=== PATIENT | male | born 1950 | race Caucasian/White ===

== ENCOUNTER 2019-05-15 15:36 | Emergency (ER) | payer MEDICARE ==
[2019-05-15 15:55] VITALS: PULSE 66
--- NOTE | 2019-05-15 16:05 | ERPHSYRPT ---
- History of Present Illness Time Seen by Provider: 05/15/19 16:02 Source: patient Exam Limitations: no limitations Patient Subjective Stated Complaint: pt reports yesterday morning when he woke he had right wrist pain. pt reports he thought he slept on his arm wrong. pt reports pain has increased. pt denies injury or accident. Triage Nursing Assessment: pt is aox3, pupils perrl, afebrile, resps easy and non labored, radial pulses strong and equal, cap refill < 3 seconds, pt sensation is intact, ROM limited to right wrist due to pain with movement, slight swelling noted to the right wrist,hand. skin is intact. Physician History: pt reports yesterday morning when he woke he had right wrist pain. pt reports he thought he slept on his arm wrong. pt reports pain has increased. pt denies injury or accident. ROM limited to right wrist due to pain with movement, slight swelling noted to the right wrist,hand. Occurred: yesterday Severity of Pain-Max: moderate Severity of Pain-Current: moderate Extremities Pain Location: elbow: right, forearm: right, wrist: right Modifying Factors: Improves With: nothing Associated Symptoms: none Allergies/Adverse Reactions: meperidine [From Demerol] Adverse Reaction (Verified 05/15/19 15:55) Home Medications: Lisinopril/Hydrochlorothiazide [Lisinopril-Hctz 10-12.5 mg Tab] 1 ea DAILY 05/20 [History] Hx Tetanus, Diphtheria Vaccination/Date Given: (unk) Hx Influenza Vaccination/Date Given: No Hx Pneumococcal Vaccination/Date Given: No Immunizations Up to Date: Yes - Review of Systems Constitutional: No Fever, No Chills Eyes: No Symptoms Ears, Nose, & Throat: No Symptoms Respiratory: No Cough, No Dyspnea Cardiac: No Chest Pain, No Edema, No Syncope Abdominal/Gastrointestinal: No Abdominal Pain, No Nausea, No Vomiting, No Diarrhea Genitourinary Symptoms: No Dysuria Musculoskeletal: Joint Redness, Joint Pain (right wrist, forearm and elbow), Joint Swelling, No Back Pain, No Neck Pain, No Deformity, No Fall Skin: No Rash Neurological: No Dizziness, No Focal Weakness, No Sensory Changes Psychological: No Symptoms Endocrine: No Symptoms All Other Systems: Reviewed and Negative - Past Medical History Pertinent Past Medical History: Yes Cardiac History: Hypertension - Past Surgical History Past Surgical History: Yes Cardiac: CABG Gastrointestinal: Appendectomy Musculoskeletal: Orthopedic Surgery Other Surgical History: knee surg bilat, shoulder surg, kidney stone removed, ear surg, sinus surg,. CABG 01/15/2019 - Social History Smoking Status: Current every day smoker Exposure to second hand smoke: Yes Drug Use: none Patient Lives Alone: No - Nursing Vital Signs Nursing Vital Signs: Initial Vital Signs Temperature 97.8 F 05/15/19 15:45 Pulse Rate 66 05/15/19 15:45 Respiratory Rate 20 05/15/19 15:45 Blood Pressure 162/81 05/15/19 15:45 O2 Sat by Pulse Oximetry 98 05/15/19 15:45 Pain Scale Pain Intensity 4 - Physical Exam General Appearance: alert Eyes, Ears, Nose, Throat Exam: moist mucous membranes Neck Exam: non-tender, supple Cardiovascular/Respiratory Exam: chest non-tender, normal breath sounds, regular rate/rhythm, no respiratory distress Abdominal Exam: non-tender, No guarding Back Exam: normal inspection, No vertebral tenderness Elbow/Forearm Exam: limited ROM, soft tissue tenderness, No deformity Wrist Exam: limited ROM, pain, soft tissue tenderness Hand Exam: normal inspection Neuro/Tendon Exam: normal sensation, normal motor functions Mental Status Exam: alert, oriented x 3, cooperative Skin Exam: normal color, warm, dry SpO2: 98 - Course Nursing assessment & vital signs reviewed: Yes - Radiology Exams Elbow X-ray Interpretation: Reviewed by me (no acute fracture), Negative, No Fracture Forearm X-ray Interpretation: Reviewed by me (no acute fracture), Negative, No Fracture Wrist X-ray Interpretation: Reviewed by me, Negative, No Fracture Ordered Tests: Medication Summary Discontinued Medications Generic Name Dose Route Start Last Admin Trade Name Freq PRN Reason Stop Dose Admin Ketorolac Tromethamine 60 mg 05/15/19 16:37 05/15/19 16:46 Toradol 30 Mg Injection IM 05/15/19 16:38 60 mg STAT ONE Administration Ketorolac Tromethamine Confirm 05/15/19 16:42 Toradol 30 Mg Injection Administered 05/15/19 16:43 Dose 60 mg .ROUTE .STK-MED ONE Lab/Rad Data: Laboratory Result Diagrams 05/15/19 16:15 05/15/19 16:15 Laboratory Results 05/15/19 05/15/19 Range/Units 16:15 16:15 WBC 8.1 (4.0-10.5) K/mm3 RBC 5.28 (4.1-5.6) M/mm3 Hgb 15.1 (12.5-18.0) gm/dl Hct 44.4 (42-50) % MCV 84.1 (78-100) fl MCH 28.6 (26-32) pg MCHC 34.0 (32-36) g/dl RDW 13.6 (11.5-14.0) % Plt Count 219 (150-450) K/mm3 MPV 11.4 H (6-9.5) fl Gran % 55.6 (36.0-66.0) % Eos # (Auto) 0.15 (0-0.5) Absolute Lymphs (auto) 2.68 (1.0-4.6) Absolute Monos (auto) 0.67 (0.0-1.3) Lymphocytes % 33.3 (24.0-44.0) % Monocytes % 8.3 (0.0-12.0) % Eosinophils % 1.9 (0.00-5.0) % Basophils % 0.9 (0.0-0.4) % Absolute Granulocytes 4.48 (1.4-6.9) Basophils # 0.07 (0-0.4) Sodium 142 (137-145) mmol/L Potassium 3.8 (3.5-5.1) mmol/L Chloride 105 (98-107) mmol/L Carbon Dioxide 27 (22-30) mmol/L Anion Gap 14.7 (5-15) MEQ/L BUN 20 (9-20) mg/dL Creatinine 1.11 (0.66-1.25) mg/dL Estimated GFR > 60.0 ML/MIN Glucose 111 H (74-106) mg/dL Uric Acid 7.4 H (3.5-7.2) mg/dL Calcium 9.8 (8.4-10.2) mg/dL Total Bilirubin 0.80 (0.2-1.3) mg/dL AST 35 (17-59) U/L ALT 36 (0-50) U/L Alkaline Phosphatase 72 (38-126) U/L Serum Total Protein 8.0 (6.3-8.2) g/dL Albumin 4.8 (3.5-5.0) g/dL - Progress Progress: improved, pain not gone completely Counseled pt/family regarding: lab results, diagnosis, need for follow-up, rad results - Departure Departure Disposition: Home Clinical Impression: Gouty arthritis of right hand Condition: Stable Critical Care Time: No Referrals: YOLANDA RIOS [Primary Care Provider] - Instructions: Gout (DC), Uric Acid Blood Test, Low Purine Diet Additional Instructions: Discharge/Care Plan ALINE CABALLERO was seen on 05/15/19 in the Emergency Room. The patient was counseled regarding Diagnosis,Lab results, Imaging studies, need for follow up and when to return to the Emergency Room. Prescriptions given: Discharge Note I have spoken with the patient and/or caregivers. I have explained the patient' s condition, diagnosis and treatment plan based on the information available to me at this time. I have answered the patient's and/or caregiver's questions and addressed any concerns. The patient and/or caregivers have as good understanding of the patient's diagnosis, condition and treatment plan as can be expected at this point. The vital signs have been stable. The patient's condition is stable and appropriate for discharge from the emergency department. The patient will pursue further outpatient evaluation with the primary care physician or other designated or consulting physician as outlined in the discharge instructions. The patient and/or caregivers are agreeable to this plan of care and follow-up instructions have been explained in detail. The patient and/or caregivers have received these instruction. The patient/and or caregivers are aware that any significant change in condition or worsening of symptoms should prompt an immediate return to this or the closest emergency department or call 911. ALINE CABALLERO was seen on 05/15/19 n the Emergency Room. At that time you were treated for an emergent condition, during your visit Laboratory, Radiology and/or other procedures may have been ordered. It is very important that you follow-up with your Primary Care Physician YOLANDA RIOS within the next 24- 48 hours to review your Emergency Room visit and the final results of testing that was ordered. Some test results such as Urine Cultures, Blood Cultures, and other cultures if ordered will not be finalized for 24-48 hours. If you do not have a Primary Care Provider please call the medical records department at [phone] to obtain a copy of your results or you may sign into our patient portal to obtain these results by visiting us @ [email or web address] and completing the following steps: 1. Click on the Patient Portal link 2. Click the Patient Self Enrollment Link to complete the enrollment form and entering your 3. Once the enrollment form is completed you will receive an email with a temporary ID and password at the email address you provided. 4. Next choose a user name and password. Your user name must be at least 4 characters long and your password must be at least 4 characters long. 5. Choose a security question from the list and provide your answer to the question. If you already have signed into the Health Portal you may access your Health Care Information 31/03 by the following steps: 1. Login to our website @ [email or web address] 2. Enter your original user name and password. FAQS The [facility] Health Portal is an online tool that contains your Lab Results, Radiology Reports, Visit History, Discharge Instructions and Health Summary Lab and Radiology Results will not be available for 72 hours on the portal. The Portal is a secure site, passwords are encryted and URLs are re-written so they cannot be copied and pasted. You and authorized family members are the only ones who can access your Portal. Also there is a timeout feature that protects your information if you leave the Portal page open. If you have technical difficulty please use the Contact Us link on the page this will allow you to submit any questions you have regarding the Portal or you may contact the Medical Record Department at [phone] ext [phone]. Prescriptions: Indomethacin 25 mg [Indocin 25 MG] 25 mg PO TID #20 capsule
[2019-05-15 16:27] LABS: BASOPHIL % 0.9 % (0.0-0.4); Basophil (Absolute #) 0.07 (0-0.4); Eosinophil % 1.9 % (0.00-5.0); Eosinophil (Absolute #) 0.15 (0-0.5); Granulocyte Absolute (ANC) 4.48 (1.4-6.9); Granulocytes % 55.6 % (36.0-66.0); Hematocrit 44.4 % (42-50); Hemoglobin 15.1 gm/dl (12.5-18.0); Lymphocyte (Absolute #) 2.68 (1.0-4.6); Lymphocytes % 33.3 % (24.0-44.0); Mean Cell Volume 84.1 fl (78-100); Mean Corpuscular Hemoglobin 28.6 pg (26-32); Mean Platelet Volume 11.4 fl (6-9.5); Monocyte (Absolute #) 0.67 (0.0-1.3); Monocytes % 8.3 % (0.0-12.0); Platelet Count 219 K/mm3 (150-450); Red Blood Count 5.28 M/mm3 (4.1-5.6); Red Cell Distribution Width 13.6 % (11.5-14.0); White Blood Count 8.1 K/mm3 (4.0-10.5)
[2019-05-15 16:34] LABS: ALBUMIN 4.8 g/dL (3.5-5.0); ALKALINE PHOSPHATASE 72 U/L (38-126); ANION GAP 14.7 MEQ/L (5-15); BLOOD UREA NITROGEN 20 mg/dL (9-20); CHLORIDE 105 mmol/L (98-107); Calcium 9.8 mg/dL (8.4-10.2); Carbon Dioxide 27 mmol/L (22-30); Creatinine 1 1.11 mg/dL (0.66-1.25); Glucose 111 mg/dL (74-106); Potassium 3.8 mmol/L (3.5-5.1); SGOT/AST 35 U/L (17-59); SGPT/ALT 36 U/L (0-50); SODIUM 142 mmol/L (137-145); Uric Acid 7.4 mg/dL (3.5-7.2)
[2019-05-15] MEDS ORDERED: TORAdol 30 mg Injection IM ONE (16:37)
[2019-05-15] MEDS ORDERED: TORAdol 30 mg Injection ONE (16:42)
[2019-05-15 17:09] VITALS: BP 157/76
--- NOTE | 2019-05-16 07:31 | XRAY ---
Indication: Pain. No known injury. Comparison: None 3 views of the right wrist demonstrates mild 1st metacarpal multangular degenerative changes with tiny heterotopic ossification. Mild radiocarpal joint space narrowing. No other bony, articular, or soft tissue abnormalities.
--- NOTE | 2019-05-16 07:33 | XRAY ---
Indication: Pain. No known injury. Comparison: None 3 views of the right elbow demonstrates tiny spurring of the lateral epicondyle and olecranon process. No other bony, articular, or soft tissue abnormalities.
--- NOTE | 2019-05-16 07:36 | XRAY ---
Indication: Pain. No known injury. Comparison: None 2 views of the right forearm obtained. No bony, articular, or soft tissue abnormalities. Wrist and elbow reported separately.
[2019-05-18 12:17] VITALS: O2SAT 98
== END 2019-05-15 17:08 | disposition home or self-care (01) ==
LOC: ED 15:36
DX: M10.9 Gout, unspecified (principal)
CPT/HCPCS: 36415; 73080; 73090; 73110; 80053; 84550; 85025; 96372; 99284; J1885

== ENCOUNTER 2020-06-12 08:20 | Day surgery (SDC) | payer MEDICARE ==
[~2020-06-12 08:20] MED LIST: DIPRIVAN 200 MG/20 ML IV ONE; Quelicin Fliptop 200 MG/10 ML ONE; SUBLIMAZE 250 MCG/5 ML ONE; Versed 2 MG/2 ML Injection ONE
[2020-06-12] MEDS ORDERED: BRIDION 200MG/2ML IV ONE (08:51)
--- NOTE | 2020-06-12 08:56 | HP ---
DATE OF SURGERY: 06/12/2020 HISTORY OF PRESENT ILLNESS: The patient is a 69 year old with a bulge and a lot of pain in the xiphoid area. It is felt that he would benefit from repair with aspect of his prior open heart surgery in the past. PAST MEDICAL HISTORY: Heart disease. Transient ischemic attack. Coronary artery disease. Hypertension. History of kidney stones. Atrial fibrillation in the past. Hyperlipidemia. PAST SURGICAL HISTORY: Open heart surgery a year and a half ago. Coronary artery bypass graft. Bilateral knee surgery. Aortic valve in the past. Kidney stone removed in the past. Hemorrhoidectomy. Rotator cuff surgery in the past. Tendon surgery in the past. Pins in the right ankle in the past. MEDICATIONS: Metoprolol, warfarin, Pravastatin, aspirin, pantoprazole. ALLERGIES: MEPERIDINE. FAMILY HISTORY: Negative in regards to this problem. SOCIAL HISTORY: No smoking or alcohol abuse. REVIEW OF SYSTEMS: Fourteen systems reviewed per admission assessment. No chest pain or palpitations. Other systems negative or noncontributory as above and per preadmission questionnaire. PHYSICAL EXAMINATION: GENERAL: No acute distress. HEENT: Sclerae nonicteric. NECK: No JVD. CHEST: Equal excursion, nonlabored breathing. CVS: Regular rate and rhythm. ABDOMEN: Soft. Increased aches and pain in the area. EXTREMITIES: No significant edema. NEURO: Alert, oriented, moving extremities symmetrically. No gross motor deficits noted. PSYCH: Appropriate mood and affect. IMPRESSION: Pain over his xiphoid area ventral hernia. Options were discussed of laparoscopic versus robotic versus open repair. Given the location he is willing to proceed with open repair. Risk of bleeding or infection, risk of wound complications or dehiscence, general risk of anesthesia, deep venous thrombosis, pulmonary embolism, pneumonia. General risk of aches and pains, moderate risk of hernia recurrence in this area, risk of mesh infection possibly requiring removal, risk of mesh fracture or failure, possible risk to viscera or other structures possibly requiring further procedures, general risk of anesthesia, deep venous thrombosis, pulmonary embolism, pneumonia, risk of cardiopulmonary event. He understands and agrees to the planned procedure and will proceed with open repair of incarcerated ventral hernia with mesh as an outpatient.
[2020-06-12] MEDS ORDERED: Lactated Ringers 1,000 ML IV SCH (09:00)
[2020-06-12] MEDS ORDERED: CEFAZOLIN 2 GM-D5W BAG** 2 GM/50 ML ML IV SCH (09:00)
[2020-06-12 09:34] LABS: INR 1.14 (0.8-3.0); PROTIME 12.9 SECONDS (8.83-12.87)
[2020-06-12 09:39] LABS: ANION GAP 8.7 MEQ/L (5-15); BLOOD UREA NITROGEN 18 mg/dL (9-20); CHLORIDE 109 mmol/L (98-107); Carbon Dioxide 23 mmol/L (22-30); Creatinine 1 0.84 mg/dL (0.66-1.25); EST GLOMERULAR FILTRATION RATE > 60.0 ML/MIN; Glucose 116 mg/dL (74-106); Potassium 4.5 mmol/L (3.5-5.1); SODIUM 137 mmol/L (137-145)
[2020-06-12] MEDS ORDERED: Sensorcaine 0.25% 10 ML ONE (11:26)
[2020-06-12] MEDS ORDERED: Lactated Ringers 1,000 ML IV ONE (11:26)
[2020-06-12] MEDS ORDERED: APRESOLINE 20 MG/ML INJ ONE (12:26)
[2020-06-12] MEDS ORDERED: SUBLIMAZE 100 MCG/2 ML ONE (12:40)
[2020-06-12 15:13] VITALS: O2SAT 94
[2020-06-12 15:47] VITALS: BP 151/75; PULSE 71
--- NOTE | 2020-06-13 08:30 | OP ---
SURGERY DATE/TIME: 06/12/2020 1055 PREOPERATIVE DIAGNOSIS: Incarcerated ventral hernia. POSTOPERATIVE DIAGNOSIS: Incarcerated ventral hernia. PROCEDURE: Open repair of incarcerated ventral incisional hernia with mesh. SURGEON: Dr. Chintan Metcalf. LARRY CAR OPERATOR: Mao Metzger, Medical Student III. ANESTHESIA: General. ESTIMATED BLOOD LOSS: Minimal. INDICATIONS: As noted above. Risks and benefits explained in detail and not limited to and consent obtained. DESCRIPTION OF PROCEDURE AND FINDINGS: The patient is taken to the operating room. General anesthesia induced. Abdomen prepped and draped in usual sterile fashion. After official time out and no disagreement with planned procedure, as his hernia was at the upper epigastrium area next to the sternal xiphoid area from his prior cardiac procedure, the bottom part of this scar was all thinned out and is actually excised. Dissection carried down through the hernia. The fat that was in the hernia was carefully released from its attachments and dropped back down in the abdomen. Carefully cleared on all sides of the fascial defect. The site was measured. It was felt that safest size mesh to use is size [address] and carefully inserted, secured with 0 Prolene 1 cm apart around the edges with full thickness bites through the fascia and grabbing edge of the cartilage along the rib area as there is very little tissue. Healthy bites of transfascial inferiorly in a nice tension free fashion. Once this was accomplished the attenuated fascia and soft tissue was closed over top of the mesh using a running looped PDS. Superficial subcu closed with 2-0 Vicryl as the area was a little bit snug. Skin closed with 4-0 Vicryl and some interrupted 3-0 Prolene used to reinforce the area. Sterile dressing applied as well as abdominal binder. 0.25% Marcaine local injected along the fascia along the skin incision. The patient tolerated the procedure well. There were no immediate complications. Findings discussed with the family member on the phone as they are not here in person. He was transferred to the recovery room in stable condition.
== END 2020-06-12 16:10 | disposition home or self-care (01) ==
LOC: SDC 08:20
PROVIDERS: ATTEND Surgery
DX: K43.6 Other and unspecified ventral hernia with obstruction, without gangrene (principal); I10 Essential (primary) hypertension; E78.5 Hyperlipidemia, unspecified; I25.10 Atherosclerotic heart disease of native coronary artery without angina pectoris; Z79.01 Long term (current) use of anticoagulants; Z86.73 Personal history of transient ischemic attack (TIA), and cerebral infarction without residual deficits; Z79.899 Other long term (current) drug therapy
CPT/HCPCS: 36415; 49561; 49568; 80048; 85610; 93005; C1781; J0330; J0360; J0690; J2250; J2704; J3010; L0625

== ENCOUNTER 2022-02-21 13:47 | Observation (INO) | payer MEDICARE ==
[2022-02-21] MEDS ORDERED: Sodium Chloride 0.9% 1000 ML 1,000 ML IV STA (14:00)
[2022-02-21] MEDS ORDERED: Sodium Chloride 0.9% 1000 ML 1,000 ML ONE (14:09)
--- NOTE | 2022-02-21 14:16 | ERPHSYRPT ---
- History of Present Illness Historian: patient, EMS Exam Limitations: no limitations Patient Subjective Stated Complaint: diarrhea, N&V x3 days Triage Nursing Assessment: Pt brought to the ER by EMS, vitals wnl, denies pain, cold, lethargic, wants to sleep, pulses normal, denies pain to abdomen with palpatation, ate breakfast this morning but vomited it up Physician History: 72 yo wm w N/V/D since 10:30 this AM. Pt denies abdominal pain/betsy temesis/melena/hematochezia/fever/cough/chest pain/dyspnea. He is on Doxycycline s/p knee replacement on 02/05/22. Timing/Duration: other (10:30) Activities at Onset: rest Quality: other (No abdominal pain) Severity of Pain-Max: none Severity of Pain-Current: none Modifying Factors: Improves With: vomiting Associated Symptoms: diarrhea, loss of appetite, nausea, vomiting, weakness, No back, No chest pain, No diaphoresis, No fever/chills, No fatigue, No headache, No heartburn, No neck pain, No rash, No shortness of breath, No syncope Previous symptoms: no prior history Allergies/Adverse Reactions: meperidine [From Demerol] Adverse Reaction (Verified 02/21/22 13:58) pt states he becomes violent Home Medications: Metoprolol Tartrate 25 mg [Lopressor 25MG Tab] 25 mg PO BID 05/29/20 [History] Pravastatin Sodium [Pravachol] 80 mg PO 1800 05/29/20 [History] Ezetimibe 10 mg [Zetia 10 MG] 10 mg PO 1800 02/21/22 [History] Warfarin Sodium 3 mg [Coumadin 3 MG] 5 mg PO 1800 02/21/22 [History] hydrOXYzine pamoate [Vistaril] 25 mg PO Q6H PRN 02/21/22 [History] Hx Tetanus, Diphtheria Vaccination/Date Given: (unk) Hx Influenza Vaccination/Date Given: No Hx Pneumococcal Vaccination/Date Given: No Travel Risk - International Travel Have you traveled outside of the country in past 3 weeks: No - Coronavirus Screening Are you exhibiting any of the following symptoms?: Yes Symptoms: Vomiting/Diarrhea - Vaccine Status Have you recieved a Covid-19 vaccination: No - Review of Systems Constitutional: No Symptoms, Chills Eyes: No Symptoms Ears, Nose, & Throat: No Symptoms Respiratory: No Symptoms Cardiac: No Symptoms Abdominal/Gastrointestinal: No Symptoms, Nausea, Vomiting, Diarrhea, No Abdominal Pain Genitourinary Symptoms: No Symptoms Musculoskeletal: No Symptoms Skin: No Symptoms Neurological: No Symptoms Psychological: No Symptoms Endocrine: No Symptoms Hematologic/Lymphatic: No Symptoms Immunological/Allergic: No Symptoms - Past Medical History Pertinent Past Medical History: Yes Neurological History: TIA ENT History: No Pertinent History Cardiac History: Coronary Artery Disease, Hypertension Respiratory History: No Pertinent History Endocrine Medical History: No Pertinent History Musculoskeletal History: No Pertinent History GI Medical History: Hemorrhoids History: Other Psycho-Social History: No Pertinent History Male Reproductive Disorders: No Pertinent History Other Medical History: hx of kidney stones,hernia - Past Surgical History Past Surgical History: Yes Neuro Surgical History: No Pertinent History Cardiac: CABG Respiratory: No Pertinent History Gastrointestinal: Appendectomy Genitourinary: No Pertinent History Musculoskeletal: Orthopedic Surgery Male Surgical History: No Pertinent History Other Surgical History: knee surg bilat, shoulder surg, kidney stone removed, ear surg, sinus surg, hemorrhoidectomy. CABG 01/15/2019 - Social History Smoking Status: Current every day smoker How long have you smoked: 50 Exposure to second hand smoke: Yes Drug Use: none Patient Lives Alone: No Significant Family History: no pertinent family hx - Nursing Vital Signs Nursing Vital Signs: Initial Vital Signs Temperature 97.8 F 02/21/22 13:49 Pulse Rate 80 02/21/22 13:49 Blood Pressure 118/63 02/21/22 13:49 O2 Sat by Pulse Oximetry 94 L 02/21/22 13:49 Pain Scale Pain Intensity 0 WNL - Physical Exam General Appearance: no apparent distress Eye Exam: PERRL/EOMI, eyes nml inspection Ears, Nose, Throat Exam: normal ENT inspection, TMs normal, pharynx normal, moist mucous membranes Neck Exam: normal inspection, non-tender, supple, full range of motion, No meningismus, No mass, No Brudzinski, No Kernig's, No carotid bruit Respiratory Exam: normal breath sounds, lungs clear, airway intact Cardiovascular Exam: regular rate/rhythm (Audible prosthetic valve), capillary refill <2 sec Gastrointestinal/Abdomen Exam: soft, normal bowel sounds, No tenderness Back Exam: normal inspection, normal range of motion Extremity Exam: normal inspection, normal range of motion, pelvis stable Neurologic Exam: alert, oriented x 3, cooperative, audience coordinator II-XII nml as tested, normal mood/affect, nml station & gait, sensation nml, No motor deficits, No sensory deficit Skin Exam: normal color, warm, dry, No rash Lymphatic Exam: No adenopathy SpO2 Interpretation: normal SpO2: 94 O2 Delivery: Room Air - Course Nursing assessment & vital signs reviewed: Yes EKG Interpreted by Me: RATE (NSR/Rate75/Prolonged QTc/Nonspecific St-T wave changes/1st degree AV block/Poor baseline/EKG#2 NSR/Prolonged QTc/No acute St segment changes/1st degree AV block) - CT Exams Abdomen/Pelvis CT Interpretation: Discussed w/radiologist (Minimal gallbladder s ludge/HH/diverticulosis) - Radiology Ultrasound Exam Gallbladder Ultrasound: Other (Nothing acute per tech) Ordered Tests: Active Orders 24 hr Category Date Time Status EKG-ER Only STAT Care 02/21/22 14:00 Completed EKG-ER Only STAT Care 02/21/22 20:19 Completed NPO Diet 02/22/22 00:01 Active ABDOMEN AND PELVIS W/0 CONTRAS [CT] Stat Exams 02/21/22 15:25 Completed ABDOMINAL-LIMITED [US] Stat Exams 02/21/22 16:51 Taken CBC W DIFF Stat Lab 02/21/22 14:15 Completed CMP Stat Lab 02/21/22 14:15 Completed LIPASE Stat Lab 02/21/22 14:15 Completed LIPID PROFILE AM.LAB Lab 02/22/22 04:00 Ordered Lactic Acid Stat Lab 02/21/22 14:00 Completed PROTIME WITH INR Stat Lab 02/21/22 14:30 Completed PTT Stat Lab 02/21/22 14:30 Completed TROPONIN Q3H Lab 02/21/22 14:15 Completed TROPONIN Q3H Lab 02/21/22 17:25 Completed TROPONIN Q3H Lab 02/21/22 18:30 Completed TROPONIN Q3H Lab 02/21/22 23:35 Received TROPONIN Q3H Lab 02/22/22 02:15 Ordered TROPONIN Stat Lab 02/21/22 19:45 Completed Transfer Order Routine Transfer 02/21/22 Completed Medication Summary Generic Name Dose Route Start Last Admin Trade Name Freq PRN Reason Stop Dose Admin Aspirin 325 mg 02/22/22 10:00 Aspirin 325 Mg Tablet.Ec PO 03/24/22 09:59 DAILY SIRI Famotidine 20 mg 02/21/22 22:00 02/21/22 23:45 Famotidine 20 Mg/1 Vial IV 03/23/22 21:59 20 mg Q12HT SIRI Administration Fentanyl Citrate 50 mcg 02/21/22 21:05 02/21/22 23:45 Fentanyl Citrate 100 Mcg/2 Ml* Vial IV 02/26/22 21:04 50 mcg [id number] PRN Administration PAIN Ondansetron HCl 4 mg 02/21/22 21:02 Ondansetron Hcl 4 Mg/2 Ml Vial IV 03/23/22 21:01 Q4H PRN PRN NAUSEA/VOMITING Senna/Docusate Sodium 2 udtab 02/21/22 21:02 Senna/Docusate Sodium 1 Udtab Tablet PO 03/23/22 21:01 BID PRN PRN CONSTIPATION Discontinued Medications Generic Name Dose Route Start Last Admin Trade Name Freq PRN Reason Stop Dose Admin Aspirin 324 mg 02/21/22 20:20 02/21/22 20:27 Aspirin 81 Mg Tab.Chew PO 02/21/22 20:21 324 mg STAT ONE Administration Fentanyl Citrate 50 mcg 02/21/22 17:22 02/21/22 17:30 Fentanyl Citrate 100 Mcg/2 Ml* Vial IV 02/21/22 17:23 50 mcg STAT ONE Administration Fentanyl Citrate Confirm 02/21/22 17:29 Fentanyl Citrate 100 Mcg/2 Ml* Vial Administered 02/21/22 17:30 Dose 100 mcg .ROUTE .STK-MED ONE Sodium Chloride 1,000 mls @ 999 mls/hr 02/21/22 14:00 02/21/22 15:13 Sodium Chloride 0.9% 1000 Ml IV 02/21/22 15:00 Infused .Q1H1M STA Infusion Sodium Chloride Confirm 02/21/22 14:09 Sodium Chloride 0.9% 1000 Ml Administered 02/21/22 14:10 Dose 1,000 mls @ ud .ROUTE .STK-MED ONE Ondansetron HCl 4 mg 02/21/22 17:22 02/21/22 17:30 Ondansetron Hcl 4 Mg/2 Ml Vial IV 02/21/22 17:23 4 mg STAT ONE Administration Ondansetron HCl Confirm 02/21/22 17:29 Ondansetron Hcl 4 Mg/2 Ml Vial Administered 02/21/22 17:30 Dose 4 mg .ROUTE .STK-MED ONE Warfarin Sodium 10 mg 02/22/22 21:15 02/21/22 21:24 Warfarin Sodium 5 Mg 5 Mg Tablet PO 02/22/22 21:16 10 mg STAT ONE Administration Warfarin Sodium Confirm 02/21/22 21:20 Warfarin Sodium 5 Mg 5 Mg Tablet Administered 02/21/22 21:21 Dose 10 mg .ROUTE .STK-MED ONE Lab/Rad Data: Laboratory Result Diagrams 02/21/22 14:15 02/21/22 14:15 Laboratory Results 02/21/22 02/21/22 02/21/22 Range/Units 21:05 19:45 18:30 WBC (4.0-10.5) x10^3/uL RBC (4.1-5.6) x10^6/uL Hgb (12.5-18.0) g/dL Hct (42-50) % MCV (78-100) fL MCH (26-32) pg MCHC (32-36) g/dL RDW (11.5-14.0) % Plt Count (150-450) x10^3/uL MPV (7.5-11.0) fL Gran % (36.0-66.0) % Immature Gran % (Auto) (0.00-0.4) % Nucleat RBC Rel Count (0.00-0.1) % Eos # (Auto) (0-0.5) x10^3/uL Immature Gran # (Auto) (0.00-0.03) x10^3u/L Absolute Lymphs (auto) (1.0-4.6) x10^3/uL Absolute Monos (auto) (0.0-1.3) x10^3/uL Absolute Nucleated RBC (0.00-0.01) x10^3u/L Lymphocytes % (24.0-44.0) % Monocytes % (0.0-12.0) % Eosinophils % (0.00-5.0) % Basophils % (0.0-0.4) % Absolute Granulocytes (1.4-6.9) x10^3/uL Basophils # (0-0.4) x10^3/uL PT (9.4-12.5) SECONDS INR (0.8-3.0) APTT (25.1-36.5) SECONDS Sodium (137-145) mmol/L Potassium (3.5-5.1) mmol/L Chloride (98-107) mmol/L Carbon Dioxide (22-30) mmol/L Anion Gap (5-15) MEQ/L BUN (9-20) mg/dL Creatinine (0.66-1.25) mg/dL Estimated GFR ML/MIN Glucose (74-106) mg/dL Lactic Acid (0.4-2.0) Calcium (8.4-10.2) mg/dL Total Bilirubin (0.2-1.3) mg/dL AST (17-59) U/L ALT (0-50) U/L Alkaline Phosphatase (38-126) U/L Troponin I 0.053 H* 0.033 (0.000-0.034) ng/mL Serum Total Protein (6.3-8.2) g/dL Albumin (3.5-5.0) g/dL Lipase (23-300) U/L Influenza Type A Ag NEGATIVE (NEGATIVE) Influenza Type B Ag NEGATIVE (NEGATIVE) RSV (PCR) NEGATIVE (Negative) SARS-CoV-2 (PCR) NEGATIVE (NEGATIVE) 02/21/22 02/21/22 02/21/22 Range/Units 17:25 14:30 14:15 WBC (4.0-10.5) x10^3/uL RBC (4.1-5.6) x10^6/uL Hgb (12.5-18.0) g/dL Hct (42-50) % MCV (78-100) fL MCH (26-32) pg MCHC (32-36) g/dL RDW (11.5-14.0) % Plt Count (150-450) x10^3/uL MPV (7.5-11.0) fL Gran % (36.0-66.0) % Immature Gran % (Auto) (0.00-0.4) % Nucleat RBC Rel Count (0.00-0.1) % Eos # (Auto) (0-0.5) x10^3/uL Immature Gran # (Auto) (0.00-0.03) x10^3u/L Absolute Lymphs (auto) (1.0-4.6) x10^3/uL Absolute Monos (auto) (0.0-1.3) x10^3/uL Absolute Nucleated RBC (0.00-0.01) x10^3u/L Lymphocytes % (24.0-44.0) % Monocytes % (0.0-12.0) % Eosinophils % (0.00-5.0) % Basophils % (0.0-0.4) % Absolute Granulocytes (1.4-6.9) x10^3/uL Basophils # (0-0.4) x10^3/uL PT 13.6 H (9.4-12.5) SECONDS INR 1.32 (0.8-3.0) APTT 27.8 (25.1-36.5) SECONDS Sodium (137-145) mmol/L Potassium (3.5-5.1) mmol/L Chloride (98-107) mmol/L Carbon Dioxide (22-30) mmol/L Anion Gap (5-15) MEQ/L BUN (9-20) mg/dL Creatinine (0.66-1.25) mg/dL Estimated GFR ML/MIN Glucose (74-106) mg/dL Lactic Acid (0.4-2.0) Calcium (8.4-10.2) mg/dL Total Bilirubin (0.2-1.3) mg/dL AST (17-59) U/L ALT (0-50) U/L Alkaline Phosphatase (38-126) U/L Troponin I 0.020 0.014 (0.000-0.034) ng/mL Serum Total Protein (6.3-8.2) g/dL Albumin (3.5-5.0) g/dL Lipase (23-300) U/L Influenza Type A Ag (NEGATIVE) Influenza Type B Ag (NEGATIVE) RSV (PCR) (Negative) SARS-CoV-2 (PCR) (NEGATIVE) 02/21/22 02/21/22 02/21/22 Range/Units 14:15 14:15 14:00 WBC 18.1 H (4.0-10.5) x10^3/uL RBC 3.83 L (4.1-5.6) x10^6/uL Hgb 12.1 L (12.5-18.0) g/dL Hct 35.1 L (42-50) % MCV 91.6 (78-100) fL MCH 31.6 (26-32) pg MCHC 34.5 (32-36) g/dL RDW 13.3 (11.5-14.0) % Plt Count 424 (150-450) x10^3/uL MPV 9.7 (7.5-11.0) fL Gran % 90.0 H (36.0-66.0) % Immature Gran % (Auto) 0.5 H (0.00-0.4) % Nucleat RBC Rel Count 0.0 (0.00-0.1) % Eos # (Auto) 0.01 (0-0.5) x10^3/uL Immature Gran # (Auto) 0.09 H (0.00-0.03) x10^3u/L Absolute Lymphs (auto) 0.97 L (1.0-4.6) x10^3/uL Absolute Monos (auto) 0.69 (0.0-1.3) x10^3/uL Absolute Nucleated RBC 0.00 (0.00-0.01) x10^3u/L Lymphocytes % 5.4 L (24.0-44.0) % Monocytes % 3.8 (0.0-12.0) % Eosinophils % 0.1 (0.00-5.0) % Basophils % 0.2 (0.0-0.4) % Absolute Granulocytes 16.33 H (1.4-6.9) x10^3/uL Basophils # 0.03 (0-0.4) x10^3/uL PT (9.4-12.5) SECONDS INR (0.8-3.0) APTT (25.1-36.5) SECONDS Sodium 137 (137-145) mmol/L Potassium 4.0 (3.5-5.1) mmol/L Chloride 105 (98-107) mmol/L Carbon Dioxide 24 (22-30) mmol/L Anion Gap 11.7 (5-15) MEQ/L BUN 24 H (9-20) mg/dL Creatinine 0.96 (0.66-1.25) mg/dL Estimated GFR > 60.0 ML/MIN Glucose 156 H (74-106) mg/dL Lactic Acid 1.8 (0.4-2.0) Calcium 8.9 (8.4-10.2) mg/dL Total Bilirubin 0.80 (0.2-1.3) mg/dL AST 25 (17-59) U/L ALT 15 (0-50) U/L Alkaline Phosphatase 81 (38-126) U/L Troponin I (0.000-0.034) ng/mL Serum Total Protein 6.9 (6.3-8.2) g/dL Albumin 3.5 (3.5-5.0) g/dL Lipase 61 (23-300) U/L Influenza Type A Ag (NEGATIVE) Influenza Type B Ag (NEGATIVE) RSV (PCR) (Negative) SARS-CoV-2 (PCR) (NEGATIVE) - Progress Progress: improved Progress Note: 02/21/22 20:23 1L NS bolus/4mg IV Zofran w improvement Pt complains of R knee pain so 50mcg IV Fentanyl/4mg IV Zofran given w improvement 02/21/22 20:24 324mg ASA chewable 02/21/22 21:00 Spoke w amanda Maki pt transferred to [place]. [facility] wo beds. [facility] wo beds. Spoke w Dr. Miranda who is willing to admit pt at [facility] until bed available at [place]. [facility] ICU admit 02/21/22 21:07 Bridging orders entered 02/21/22 23:51 10mg po Coumadin due to sub-therapeutic INR for prosthetic valve Counseled pt/family regarding: lab results, diagnosis, need for follow-up, rad results - Departure Departure Disposition: Observation Clinical Impression: NSTEMI (non-ST elevated myocardial infarction), Nausea & vomiting Condition: Stable Critical Care Time: No
[2022-02-21 14:38] LABS: Absolute Neutrophil Ct (ANC) 16.33 x10^3/uL (1.4-6.9); Basophil (Absolute #) 0.03 x10^3/uL (0-0.4); Eosinophil % 0.1 % (0.00-5.0); Eosinophil (Absolute #) 0.01 x10^3/uL (0-0.5); Hematocrit 35.1 % (42-50); Hemoglobin 12.1 g/dL (12.5-18.0); Lymphocyte (Absolute #) 0.97 x10^3/uL (1.0-4.6); Lymphocytes % 5.4 % (24.0-44.0); Mean Cell Volume 91.6 fL (78-100); Mean Corpuscular Hemoglobin 31.6 pg (26-32); Mean Corpuscular Hgb Concent. 34.5 g/dL (32-36); Mean Platelet Volume 9.7 fL (7.5-11.0); Monocyte (Absolute #) 0.69 x10^3/uL (0.0-1.3); Monocytes % 3.8 % (0.0-12.0); Platelet Count 424 x10^3/uL (150-450); Red Blood Count 3.83 x10^6/uL (4.1-5.6); Red Cell Distribution Width 13.3 % (11.5-14.0); White Blood Count 18.1 x10^3/uL (4.0-10.5)
[2022-02-21 14:42] LABS: ALBUMIN 3.5 g/dL (3.5-5.0); ALKALINE PHOSPHATASE 81 U/L (38-126); ANION GAP 11.7 MEQ/L (5-15); BLOOD UREA NITROGEN 24 mg/dL (9-20); CHLORIDE 105 mmol/L (98-107); Calcium 8.9 mg/dL (8.4-10.2); Carbon Dioxide 24 mmol/L (22-30); Creatinine 1 0.96 mg/dL (0.66-1.25); EST GLOMERULAR FILTRATION RATE > 60.0 ML/MIN; Glucose 156 mg/dL (74-106); LIPASE 61 U/L (23-300); SGOT/AST 25 U/L (17-59); SGPT/ALT 15 U/L (0-50); SODIUM 137 mmol/L (137-145); Total Protein 6.9 g/dL (6.3-8.2)
--- NOTE | 2022-02-21 16:24 | XRAY ---
Indication: Nausea and vomiting. Leukocytosis. Multiple contiguous axial images obtained through the abdomen and pelvis without contrast. Comparison: June 10, 2011 Lung bases again demonstrates bibasilar pleural parenchymal fibrosis/scarring and small right costophrenic angle calcified granuloma. No infiltrate or effusion. Heart not enlarged. Stable small hiatal hernia. Noncontrasted stomach and bowel loops nonobstructed. Appendectomy reported. Again minimal sigmoid diverticulosis without diverticulitis. No free fluid/air. Gallbladder normally distended with new minimal gravel/sludge in the dependent portion. No biliary distention. New 2.5 cm right upper pole renal cyst. Stable hepatic/splenic aspect granulomas. Remaining liver, pancreas, spleen, adrenal glands, kidneys, ureters, and bladder are unremarkable for noncontrast exam. Worsening moderate/significant scattered aortoiliac calcifications with new 3 cm distal AAA. Osseous structures intact with mild osteopenia, mild degenerative changes throughout thoracolumbar spine, and mild degenerative changes both hips. Impression: 1. New minimal gallbladder gravel/sludge. Sonogram may yield further information if clinically warranted. 2. New small right renal cyst. 3. Progressive worsening arteriosclerotic disease with new 3 cm distal AAA. 4. Again small hiatal hernia, sigmoid diverticulosis, chronic bony findings, and old granulomatous disease.
[2022-02-21] MEDS ORDERED: SUBLIMAZE 100 MCG/2 ML IV ONE (17:22)
[2022-02-21] MEDS ORDERED: Zofran 4 MG/2 ML VIAL IV ONE (17:22)
[2022-02-21] MEDS ORDERED: SUBLIMAZE 100 MCG/2 ML ONE (17:29)
[2022-02-21] MEDS ORDERED: Zofran 4 MG/2 ML VIAL ONE (17:29)
[2022-02-21] MEDS ORDERED: BABY ASPIRIN 81 MG CHEW PO ONE (20:20)
[2022-02-21 20:56] LABS: INR 1.32 (0.8-3.0); PROTIME 13.6 SECONDS (9.4-12.5); PTT 27.8 SECONDS (25.1-36.5)
[2022-02-21] MEDS ORDERED: Zofran 4 MG/2 ML VIAL IV PRN (21:02)
[2022-02-21] MEDS ORDERED: Senokot-S Tablet PO PRN (21:02)
[2022-02-21] MEDS ORDERED: JANTOVEN ONE (21:20)
[2022-02-21 21:44] LABS: INFLUENZA A NEGATIVE (NEGATIVE); INFLUENZA B NEGATIVE (NEGATIVE); RESPIRATORY SYNCTIAL VIRUS NEGATIVE (Negative); SARS-CoV-2 Xpert Express NEGATIVE (NEGATIVE)
[2022-02-21] MEDS: SUBLIMAZE 100 MCG/2 ML IV PRN (23:45)
[2022-02-21] MEDS: Pepcid 20 MG VIAL IV SCH (23:45)
[2022-02-22 03:04] LABS: Risk Ratio 4.1
[2022-02-22] MEDS: SUBLIMAZE 100 MCG/2 ML IV PRN ×3 (04:01→08:05)
[2022-02-22] MEDS ORDERED: HYDROXYZINE PAMOATE 25 MG PO PRN (07:08)
[2022-02-22] MEDS ORDERED: ATARAX 25 MG PO PRN (07:12)
[2022-02-22] MEDS: Dextrose 5% -0.45 NaCl 1000 ML 1,000 ML IV SCH ×2 (08:23→16:05)
[2022-02-22] MEDS: Ecotrin 325 MG PO SCH (08:24)
[2022-02-22] MEDS: Pepcid 20 MG VIAL IV SCH ×2 (08:24→21:14)
[2022-02-22] MEDS: Lopressor 25MG Tab PO SCH ×2 (08:24→21:14)
--- NOTE | 2022-02-22 08:55 | XRAY ---
Indication: Vomiting. Abnormal gallbladder on same-day CT. Two-dimensional right upper quadrant abdominal sonogram performed. Comparison: None Gallbladder normally distended with minimal sludge/gravel in the dependent portion. No abnormal gallbladder wall thickening or pericholecystic fluid. Common bile duct measures 3.7 mm. Visualized liver sonographically unremarkable. Pancreas not well-seen. Right kidney measures 10.8 cm in length with 2.6 cm upper pole cyst. Impression: 1. Gallbladder sludge/gravel. Negative for acute cholecystitis or biliary distention. 2. Nonvisualization pancreas. 3. Incidental right renal cyst. Comment: Preliminary report was given.
[2022-02-22] MEDS: NORCO 5/325 MG PO PRN ×3 (10:15→21:14)
--- NOTE | 2022-02-22 11:43 | SSS ---
DISCHARGE DIAGNOSIS: NON-ST MYOCARDIAL INFARCTION. CHIEF COMPLAINT: Nausea, vomiting and diarrhea. HISTORY OF PRESENT ILLNESS: The patient is a 71-year-old white male patient who started to develop problems after a knee replacement done in [place] on 02/05/2022. The patient went back to them the next week and had a large amount of fluid drained from his knee which the patient reported was bloody. He said it was warm, red and he was placed on doxycycline. The patient by yesterday morning was quite nauseated, vomiting and having some diarrhea. He presented to the emergency room because he reported at one point his eyes rolled back in his head and 911 was called and he was brought to the hospital. The patient's evaluation in the emergency room showed his white count to be elevated at 18,000. He had some sludge in the gallbladder but during his evaluation his initial troponin was negative but by the time they done his work up the troponins were rising. He eventually ended up with a positive four hour laboratory being above normal. He had however a normal EKG. He was felt the need to come into the hospital. A call was placed to his music education director. He said Dr. Domínguez but Dr. Zavala was immigration consultant for him and wished the patient to be transferred to [facility] for further evaluation and management for the heart issue. However there were no beds available at [facility]. We also reached out to [facility][1] likewise no beds there. The patient was therefore admitted to our ICU for further monitoring. PAST MEDICAL/SURGICAL HISTORY: The patient's medical history is significant for previous heart disease. He had coronary artery bypass graft and valve replacement in 2019. He has been doing well since that time however. He has no diabetes. His only other history otherwise was that of kidney stones and hernia. He did previously have bilateral shoulder surgery. He had a kidney stone removed. He's had a hemorrhoidectomy. HOME MEDICATIONS: Metoprolol 25 mg b.i.d., Pravastatin 80 mg a day, Zetia 10 mg a day, warfarin 5 mg a day, Vistaril 25 mg every six hours PRN. ALLERGIES: DEMEROL. PHYSICAL EXAMINATION: The patient's vital signs in the emergency room showed the temperature 97.8F, pulse 80, respiratory rate 16 and blood pressure 118/63. O2 saturation 94%. HEENT: Normocephalic, atraumatic. Pupils equal round reactive to light. Extraocular movements intact. Oropharynx is pink and moist. NECK: Supple without lymphadenopathy, thyromegaly or JVD. CHEST: Clear to auscultation. HEART: Regular rate and rhythm. ABDOMEN: Soft, slightly tender. No palpable masses. EXTREMITIES: Without cyanosis, clubbing or edema. NEUROLOGIC: The patient is alert and oriented x3. HOSPITAL COURSE: The patient after admission reported that he was feeling better. By the next morning, however, we continued to check his troponins and they continued to rise. His most recent was up to 0.309. The patient had a repeat EKG again which showed no ST-segment elevation or depression. We have been in contact with his music education director who again is trying to get him transferred to [facility] as we were talking to transfer center about hopefully sending him up there this morning. The patient's other laboratory studies showed his total cholesterol to be 125, triglycerides 187, LDL 80. His lactic acid was 1.8. He was negative for COVID, respiratory syncytial virus and flu. His white count again 18.1, hemoglobin 12.1 and PLT count of 424,000. His INR is 1.32. His sugar was 156 nonfasting. BUN 24, creatinine 0.96. His electrolytes, liver enzymes, alkaline phosphatase, lipase were all normal. His CT scan of abdomen and pelvis again showed the minimal gallbladder gravel and sludge, small right renal cyst, progressive worsening of atherosclerotic disease, a new 3 cm distal abdominal aortic aneurysm and otherwise sigmoid diverticulosis. Again, the patient now is comfortable. No chest pain, pressure or shortness of breath but with continued elevation in his troponins we will continue to monitor these and his music education director is aware of what is going on and get him sent up to [facility] for further more aggressive management.
[2022-02-22] MEDS ORDERED: PHARMACY DOSING REQUEST MC ONE (13:42)
[2022-02-22] MEDS: ENOXAPARIN SODIUM SQ SCH ×2 (14:24→23:56)
[2022-02-22] MEDS: Lotensin PO SCH (16:33)
[2022-02-22] MEDS: ZOCOR 20MG PO SCH (17:23)
[2022-02-22] MEDS: Zetia 10 MG PO SCH (17:23)
[2022-02-22] MEDS ORDERED: Coumadin 3 MG PO SCH (18:00)
[2022-02-22] MEDS ORDERED: JANTOVEN PO SCH (18:00)
[2022-02-22] MEDS ORDERED: NON-FORMULARY ITEM (Pravastatin Sodium [Pravachol] 20 MG Tablet) PO SCH (18:00)
[2022-02-22 18:58] LABS: Basophil (Absolute #) 0.02 x10^3/uL (0-0.4); Eosinophil % 3.7 % (0.00-5.0); Eosinophil (Absolute #) 0.24 x10^3/uL (0-0.5); Hematocrit 30.9 % (42-50); Hemoglobin 10.2 g/dL (12.5-18.0); Lymphocyte (Absolute #) 2.84 x10^3/uL (1.0-4.6); Mean Cell Volume 95.7 fL (78-100); Mean Corpuscular Hemoglobin 31.6 pg (26-32); Mean Platelet Volume 9.5 fL (7.5-11.0); Monocyte (Absolute #) 0.44 x10^3/uL (0.0-1.3); Monocytes % 6.8 % (0.0-12.0); Platelet Count 302 x10^3/uL (150-450); Red Blood Count 3.23 x10^6/uL (4.1-5.6); Red Cell Distribution Width 13.4 % (11.5-14.0); White Blood Count 6.5 x10^3/uL (4.0-10.5)
[2022-02-22 19:18] LABS: ALBUMIN 2.9 g/dL (3.5-5.0); ALKALINE PHOSPHATASE 62 U/L (38-126); BLOOD UREA NITROGEN 20 mg/dL (9-20); CHLORIDE 107 mmol/L (98-107); Calcium 8.3 mg/dL (8.4-10.2); Carbon Dioxide 24 mmol/L (22-30); Creatinine 1 0.86 mg/dL (0.66-1.25); EST GLOMERULAR FILTRATION RATE > 60.0 ML/MIN; Glucose 148 mg/dL (74-106); Potassium 4.1 mmol/L (3.5-5.1); SGOT/AST 20 U/L (17-59); SGPT/ALT 12 U/L (0-50); SODIUM 137 mmol/L (137-145); Total Protein 5.7 g/dL (6.3-8.2)
[2022-02-22] MEDS ORDERED: JANTOVEN PO ONE (21:15)
[2022-02-23] MEDS: Dextrose 5% -0.45 NaCl 1000 ML 1,000 ML IV SCH ×4 (00:09→21:42)
[2022-02-23] MEDS: NORCO 5/325 MG PO PRN ×4 (01:28→18:02)
[2022-02-23] MEDS: Lopressor 25MG Tab PO SCH ×2 (05:36→21:39)
[2022-02-23] MEDS: Ecotrin 325 MG PO SCH (09:28)
[2022-02-23] MEDS: ENOXAPARIN SODIUM SQ SCH ×2 (09:28→21:39)
[2022-02-23] MEDS: Pepcid 20 MG VIAL IV SCH ×2 (09:28→21:39)
[2022-02-23] MEDS: Lotensin PO SCH (09:28)
--- NOTE | 2022-02-23 15:26 | PCM.NOTE ---
Date and Time: 02/23/22 1513 Subjective Assessment: Patient is resting comfortably ,denies chest pain or dyspnea or cough or abdominal pain, appetite is good. C/O some discomfort when bends right knee since recent right knee replacement-still has ruben which are to come out this Friday at Dr Patel's office in [facility]. Troponin levels have started trending down from 0.355 yesterday to 0.152 this morning. Patient is waiting for a bed at [facility] ,Dr Domínguez is his Tactical Debriefer. Will retest troponin in the morning and if wnl will discuss discharge plans with Tactical Debriefer airborne weapons technical manager . Objective Exam General Appearance: no apparent distress Neurologic Exam: alert, oriented x 3, cooperative, normal mood/affect, other (no focal neuro defesits) Skin Exam: normal color, warm, dry Wound Assessment: Skin/Wound Assessment Wound/Incision Assessment Start: 02/21/22 23:40 Text: Status: Active Freq: Q6H Protocol: Document 02/23/22 14:00 MW (Rec: 02/23/22 15:09 MW [id number]) Wound/Incision Assessment Right Knee Wound Assessment Shift Assessment Wound Type Incision Wound Stage Non Pressure Wound Dressing Status Dry & Intact Drainage Amount None Comment Dressing CDI. Wound Photo Photo Taken No Neck Exam: normal inspection Respiratory Exam: normal breath sounds Cardiovascular Exam: murmur, bradycardia (regular) Gastrointestinal/Abdomen Exam: soft (nontender) Extremity Exam: normal inspection (LLE, right knee with healing incision /ruben- edema along incision with normal post op contusion ,not red or hot and no discharge. No pitting edema) Back Exam: normal inspection OBJECTIVE DATA Vital Signs: Vital Signs - 24 hr Temp Pulse Resp BP Pulse Ox 02/23/22 14:00 55 L 12 171/62 96 02/23/22 11:54 98 02/23/22 11:52 52 L 02/23/22 11:33 97.3 F 53 L 18 170/58 96 02/23/22 10:00 54 L 134/53 93 L 02/23/22 08:00 45 L 98 02/23/22 07:16 97.7 F 44 L 16 103/39 99 02/23/22 05:47 54 L 18 175/71 94 L 02/23/22 04:18 97.7 F 54 L 18 124/85 96 02/23/22 04:00 54 L 02/23/22 02:00 50 L 124/74 02/23/22 00:01 51 L 02/22/22 23:37 95 02/22/22 23:32 58 L 20 125/56 95 02/22/22 22:00 97.9 F 67 18 120/77 96 02/22/22 20:00 65 02/22/22 19:29 96 02/22/22 19:17 97.7 F 61 20 135/60 96 02/22/22 17:50 63 19 119/52 98 02/22/22 16:00 97.8 F 58 L 12 162/74 97 Pain Assessment - Last Documented Pain Intensity 2 Pain Scale Used 0-10 Pain Scale Intake and Output: Intake & Output 02/21/22 02/22/22 02/23/22 02/24/22 11:59 11:59 11:59 11:59 Intake Total 30 2946 240 Output Total 500 2725 800 Balance -470 221 -560 Weight 112.6 kg 114.9 kg Lab Results: Lab Results-Last 24 Hours 02/22/22 02/22/22 02/22/22 Range/Units 15:35 18:55 18:55 WBC 6.5 (4.0-10.5) x10^3/uL RBC 3.23 L (4.1-5.6) x10^6/uL Hgb 10.2 L (12.5-18.0) g/dL Hct 30.9 L (42-50) % MCV 95.7 (78-100) fL MCH 31.6 (26-32) pg MCHC 33.0 (32-36) g/dL RDW 13.4 (11.5-14.0) % Plt Count 302 (150-450) x10^3/uL MPV 9.5 (7.5-11.0) fL Gran % 45.0 (36.0-66.0) % Immature Gran % (Auto) 0.2 (0.00-0.4) % Nucleat RBC Rel Count 0.0 (0.00-0.1) % Eos # (Auto) 0.24 (0-0.5) x10^3/uL Immature Gran # (Auto) 0.01 (0.00-0.03) x10^3u/L Absolute Lymphs (auto) 2.84 (1.0-4.6) x10^3/uL Absolute Monos (auto) 0.44 (0.0-1.3) x10^3/uL Absolute Nucleated RBC 0.00 (0.00-0.01) x10^3u/L Lymphocytes % 44.0 (24.0-44.0) % Monocytes % 6.8 (0.0-12.0) % Eosinophils % 3.7 (0.00-5.0) % Basophils % 0.3 (0.0-0.4) % Absolute Granulocytes 2.90 (1.4-6.9) x10^3/uL Basophils # 0.02 (0-0.4) x10^3/uL Sodium (137-145) mmol/L Potassium (3.5-5.1) mmol/L Chloride (98-107) mmol/L Carbon Dioxide (22-30) mmol/L Anion Gap (5-15) MEQ/L BUN (9-20) mg/dL Creatinine (0.66-1.25) mg/dL Estimated GFR ML/MIN Glucose (74-106) mg/dL Calcium (8.4-10.2) mg/dL Total Bilirubin (0.2-1.3) mg/dL AST (17-59) U/L ALT (0-50) U/L Alkaline Phosphatase (38-126) U/L Troponin I 0.355 H* 0.296 H* (0.000-0.034) ng/mL Serum Total Protein (6.3-8.2) g/dL Albumin (3.5-5.0) g/dL 02/22/22 02/22/22 02/23/22 Range/Units 18:55 22:15 06:30 WBC (4.0-10.5) x10^3/uL RBC (4.1-5.6) x10^6/uL Hgb (12.5-18.0) g/dL Hct (42-50) % MCV (78-100) fL MCH (26-32) pg MCHC (32-36) g/dL RDW (11.5-14.0) % Plt Count (150-450) x10^3/uL MPV (7.5-11.0) fL Gran % (36.0-66.0) % Immature Gran % (Auto) (0.00-0.4) % Nucleat RBC Rel Count (0.00-0.1) % Eos # (Auto) (0-0.5) x10^3/uL Immature Gran # (Auto) (0.00-0.03) x10^3u/L Absolute Lymphs (auto) (1.0-4.6) x10^3/uL Absolute Monos (auto) (0.0-1.3) x10^3/uL Absolute Nucleated RBC (0.00-0.01) x10^3u/L Lymphocytes % (24.0-44.0) % Monocytes % (0.0-12.0) % Eosinophils % (0.00-5.0) % Basophils % (0.0-0.4) % Absolute Granulocytes (1.4-6.9) x10^3/uL Basophils # (0-0.4) x10^3/uL Sodium 137 (137-145) mmol/L Potassium 4.1 (3.5-5.1) mmol/L Chloride 107 (98-107) mmol/L Carbon Dioxide 24 (22-30) mmol/L Anion Gap 11.0 (5-15) MEQ/L BUN 20 (9-20) mg/dL Creatinine 0.86 (0.66-1.25) mg/dL Estimated GFR > 60.0 ML/MIN Glucose 148 H (74-106) mg/dL Calcium 8.3 L (8.4-10.2) mg/dL Total Bilirubin 0.60 (0.2-1.3) mg/dL AST 20 (17-59) U/L ALT 12 (0-50) U/L Alkaline Phosphatase 62 (38-126) U/L Troponin I 0.266 H* 0.152 H* (0.000-0.034) ng/mL Serum Total Protein 5.7 L (6.3-8.2) g/dL Albumin 2.9 L (3.5-5.0) g/dL Radiology Exams: Radiology Procedures Category Date Time Status ABDOMEN AND PELVIS W/0 CONTRAS [CT] Stat Exams 02/21/22 15:25 Completed ABDOMINAL-LIMITED [US] Stat Exams 02/21/22 16:51 Completed Assessment/Plan (1) NSTEMI (non-ST elevated myocardial infarction) Current Visit: Yes Status: Acute Assessment & Plan: troponins trending down today,clinically stable Code(s): I21.4 - NON-ST ELEVATION (NSTEMI) MYOCARDIAL INFARCTION (2) Leukocytosis Current Visit: Yes Status: Resolved Assessment & Plan: WBC 18,000 on admission down to 6,500 the next day Code(s): D72.829 - ELEVATED WHITE BLOOD CELL COUNT, UNSPECIFIED (3) Aftercare following right knee joint replacement surgery Current Visit: Yes Status: Acute Assessment & Plan: will need ruben removed 02/25/22. Exercise program per Ortho home exercise instruction Code(s): Z47.1 - AFTERCARE FOLLOWING JOINT REPLACEMENT SURGERY; Z96.651 - PRESENCE OF RIGHT ARTIFICIAL KNEE JOINT
[2022-02-23] MEDS: ZOCOR 20MG PO SCH (16:20)
[2022-02-23] MEDS: Zetia 10 MG PO SCH (16:20)
[2022-02-24] MEDS: NORCO 5/325 MG PO PRN ×3 (01:09→08:37)
[2022-02-24] MEDS: Lopressor 25MG Tab PO SCH (05:09)
[2022-02-24] MEDS: Dextrose 5% -0.45 NaCl 1000 ML 1,000 ML IV SCH (05:12)
[2022-02-24 05:36] LABS: Absolute Neutrophil Ct (ANC) 2.94 x10^3/uL (1.4-6.9); Basophil (Absolute #) 0.03 x10^3/uL (0-0.4); Eosinophil % 3.5 % (0.00-5.0); Eosinophil (Absolute #) 0.21 x10^3/uL (0-0.5); Hematocrit 32.1 % (42-50); Hemoglobin 10.6 g/dL (12.5-18.0); Lymphocyte (Absolute #) 2.15 x10^3/uL (1.0-4.6); Lymphocytes % 35.8 % (24.0-44.0); Mean Cell Volume 94.7 fL (78-100); Mean Corpuscular Hemoglobin 31.3 pg (26-32); Mean Platelet Volume 10.6 fL (7.5-11.0); Monocyte (Absolute #) 0.66 x10^3/uL (0.0-1.3); Neutrophil % 48.9 % (36.0-66.0); Platelet Count 317 x10^3/uL (150-450); Red Blood Count 3.39 x10^6/uL (4.1-5.6); Red Cell Distribution Width 13.5 % (11.5-14.0)
[2022-02-24 05:45] LABS: ALBUMIN 3.2 g/dL (3.5-5.0); ALKALINE PHOSPHATASE 68 U/L (38-126); ANION GAP 8.8 MEQ/L (5-15); BLOOD UREA NITROGEN 17 mg/dL (9-20); CHLORIDE 108 mmol/L (98-107); Calcium 8.5 mg/dL (8.4-10.2); Carbon Dioxide 26 mmol/L (22-30); Creatinine 1 0.91 mg/dL (0.66-1.25); EST GLOMERULAR FILTRATION RATE > 60.0 ML/MIN; Glucose 109 mg/dL (74-106); Potassium 4.2 mmol/L (3.5-5.1); SGOT/AST 20 U/L (17-59); SGPT/ALT 12 U/L (0-50); SODIUM 139 mmol/L (137-145); Total Protein 6.2 g/dL (6.3-8.2)
[2022-02-24] MEDS: Pepcid 20 MG VIAL IV SCH (08:38)
[2022-02-24] MEDS: Lotensin PO SCH (08:38)
[2022-02-24] MEDS: ENOXAPARIN SODIUM SQ SCH (08:38)
[2022-02-24] MEDS: Ecotrin 325 MG PO SCH (08:39)
[2022-02-24 11:25] VITALS: BP 137/65
[2022-02-24 14:21] LABS: INR 1.56 (0.8-3.0); PROTIME 15.9 SECONDS (9.4-12.5)
--- NOTE | 2022-02-24 14:38 | PCM.DCORD ---
- Discharge Disposition: Home, Self-Care Condition: Stable Prescriptions: Changed Warfarin Sodium 3 mg [Coumadin 3 MG] 5 mg PO 1800 #0 No Action Metoprolol Tartrate 25 mg [Lopressor 25MG Tab] 25 mg PO BID Pravastatin Sodium [Pravachol] 80 mg PO 1800 Hydrocodone/APAP 5-325 Tab^^^ [[place] 5-325 Tablet^^^] 1 tab PO Q4HPRN PRN #30 tablet MDD 6 PRN Reason: Pain hydrOXYzine pamoate [Vistaril] 25 mg PO Q6H PRN PRN Reason: Pain Ezetimibe 10 mg [Zetia 10 MG] 10 mg PO 1800 Additional Instructions: Call for appt with your Welder Explosion Dr Domínguez for appt tomorrow,Friday02/25/22 (per Dr Perez ,covering Wel[employer] Explosion) Follow up with: MELVIN IVEY NP [Primary Care Provider] -
[2022-02-24 14:41] VITALS: O2SAT 95
[2022-02-24 14:50] VITALS: PULSE 61
--- NOTE | 2022-02-24 14:50 | PCM.DS ---
Discharge Summary Date of Admission: 02/21/22 22:52 Date of Discharge: 02/24/22 Admitting Physician: NIVIA HERRERA Primary Care Provider: MELVIN IVEY Allergies Allergies meperidine [From Demerol] Adverse Reaction (Verified 02/21/22 13:58) pt states he becomes violent Hospital Summary - Hospital Course Hospital Course: Patient is a 71 yr old patient of Raquel Ivey[employer]ORDING [employer]UD[employer] INTERNSH[employer] and Dr Domínguez,Airport Operations Supervisor. He presented to ER with N/V/D ,is on Doxycyclinbe S/P recent right knee replacement with Dr Patel. Patient is S/P CABG (2 vessels 2019) and aortic valve replacement same surgery at [facility] . ER Troponin levels 02/21/22 were elevated 0.053, 0.138 and continued to climb 02/22/22 =0.355 but no beds available at [facility] or [facility] . Patient did not have chest pain or dyspnea. He was admitted to ICU bed at [facility] awaiting transfer. Troponin levels trended down 02/23/22 =0.182 and today 02/24/22 =0.112. VSS elev ation of B/P during times of knee pain and Lotension 10 mg was added to his current meds . EKG without changes. - Vitals & Intake/Output Vital Signs: Vital Signs Temperature 97.6 F 02/24/22 11:24 Pulse Rate 52 L 02/24/22 11:24 Respiratory Rate 12 02/24/22 11:24 Blood Pressure 137/65 02/24/22 11:24 O2 Sat by Pulse Oximetry 95 02/24/22 12:00 Intake & Output: Intake & Output 02/22/22 02/23/22 02/24/22 02/25/22 11:59 11:59 11:59 11:59 Intake Total 30 2946 4590 480 Output Total 500 2725 5200 950 Balance -470 221 -610 -470 Weight 112.6 kg 114.9 kg 115.1 kg - Lab Result Diagrams: 02/24/22 04:10 02/24/22 04:10 Lab Results-Last 24 Hrs: Lab Results-Last 24 Hours 02/24/22 02/24/22 02/24/22 Range/Units 04:10 04:10 04:10 WBC 6.0 (4.0-10.5) x10^3/uL RBC 3.39 L (4.1-5.6) x10^6/uL Hgb 10.6 L (12.5-18.0) g/dL Hct 32.1 L (42-50) % MCV 94.7 (78-100) fL MCH 31.3 (26-32) pg MCHC 33.0 (32-36) g/dL RDW 13.5 (11.5-14.0) % Plt Count 317 (150-450) x10^3/uL MPV 10.6 (7.5-11.0) fL Gran % 48.9 (36.0-66.0) % Immature Gran % (Auto) 0.3 (0.00-0.4) % Nucleat RBC Rel Count 0.0 (0.00-0.1) % Eos # (Auto) 0.21 (0-0.5) x10^3/uL Immature Gran # (Auto) 0.02 (0.00-0.03) x10^3u/L Absolute Lymphs (auto) 2.15 (1.0-4.6) x10^3/uL Absolute Monos (auto) 0.66 (0.0-1.3) x10^3/uL Absolute Nucleated RBC 0.00 (0.00-0.01) x10^3u/L Lymphocytes % 35.8 (24.0-44.0) % Monocytes % 11.0 (0.0-12.0) % Eosinophils % 3.5 (0.00-5.0) % Basophils % 0.5 (0.0-0.4) % Absolute Granulocytes 2.94 (1.4-6.9) x10^3/uL Basophils # 0.03 (0-0.4) x10^3/uL PT (9.4-12.5) SECONDS INR (0.8-3.0) Sodium 139 (137-145) mmol/L Potassium 4.2 (3.5-5.1) mmol/L Chloride 108 H (98-107) mmol/L Carbon Dioxide 26 (22-30) mmol/L Anion Gap 8.8 (5-15) MEQ/L BUN 17 (9-20) mg/dL Creatinine 0.91 (0.66-1.25) mg/dL Estimated GFR > 60.0 ML/MIN Glucose 109 H (74-106) mg/dL Calcium 8.5 (8.4-10.2) mg/dL Total Bilirubin 0.40 (0.2-1.3) mg/dL AST 20 (17-59) U/L ALT 12 (0-50) U/L Alkaline Phosphatase 68 (38-126) U/L Troponin I 0.112 H* (0.000-0.034) ng/mL Serum Total Protein 6.2 L (6.3-8.2) g/dL Albumin 3.2 L (3.5-5.0) g/dL 02/24/22 Range/Units 04:10 WBC (4.0-10.5) x10^3/uL RBC (4.1-5.6) x10^6/uL Hgb (12.5-18.0) g/dL Hct (42-50) % MCV (78-100) fL MCH (26-32) pg MCHC (32-36) g/dL RDW (11.5-14.0) % Plt Count (150-450) x10^3/uL MPV (7.5-11.0) fL Gran % (36.0-66.0) % Immature Gran % (Auto) (0.00-0.4) % Nucleat RBC Rel Count (0.00-0.1) % Eos # (Auto) (0-0.5) x10^3/uL Immature Gran # (Auto) (0.00-0.03) x10^3u/L Absolute Lymphs (auto) (1.0-4.6) x10^3/uL Absolute Monos (auto) (0.0-1.3) x10^3/uL Absolute Nucleated RBC (0.00-0.01) x10^3u/L Lymphocytes % (24.0-44.0) % Monocytes % (0.0-12.0) % Eosinophils % (0.00-5.0) % Basophils % (0.0-0.4) % Absolute Granulocytes (1.4-6.9) x10^3/uL Basophils # (0-0.4) x10^3/uL PT 15.9 H (9.4-12.5) SECONDS INR 1.56 (0.8-3.0) Sodium (137-145) mmol/L Potassium (3.5-5.1) mmol/L Chloride (98-107) mmol/L Carbon Dioxide (22-30) mmol/L Anion Gap (5-15) MEQ/L BUN (9-20) mg/dL Creatinine (0.66-1.25) mg/dL Estimated GFR ML/MIN Glucose (74-106) mg/dL Calcium (8.4-10.2) mg/dL Total Bilirubin (0.2-1.3) mg/dL AST (17-59) U/L ALT (0-50) U/L Alkaline Phosphatase (38-126) U/L Troponin I (0.000-0.034) ng/mL Serum Total Protein (6.3-8.2) g/dL Albumin (3.5-5.0) g/dL - Procedures and Test Procedures and Tests throughout Hospitalization: Therapy Orders & Screens 02/21/22 21:02 EKG Q8HX2,QAMX3,PRN Comment: 02/21/22 23:40 PT Screen per Nursing Assess ONCE Comment: Protocol Order Physician Instructions: Greater than 3 points order PT Admission Screenin Reason For Exam: Triggered on Admission Diagnosis: NSTEMI Open Wound/Cellutlitis/Pressure Ulcers: Yes Acute Fx/ORIF/Change in wt bearing status: Yes Severe MUSCULOSKELETAL pain: No ADL Dysfunction: No Acute CVA w/Hemiparesis/Hemiplegia: No Decreased Functional Mobility/Strength: Yes Sprain/Strain: No Acute Post-op Mobility Dysfunction: No Total Points: 11 Smoking Cessation Education ONCE Comment: Diagnosis: NSTEMI Smoking Status: Current every day smoker How long have you smoked: 66 years Have you smoked in the past 12 months: Yes Approximately how many cigarettes per day: 1/2 ppd Do you dip or chew tobacco: No 02/22/22 04:00 EKG ROUTINE Comment: Diagnosis: NSTEMI 02/22/22 20:23 EKG ROUTINE Comment: Diagnosis: NSTEMI 02/23/22 05:00 EKG ROUTINE Comment: Diagnosis: NSTEMI 02/24/22 05:00 EKG ROUTINE Comment: Diagnosis: NSTEMI Discharge Exam Wound Assessment: Skin/Wound Assessment Wound/Incision Assessment Start: 02/21/22 23:40 Text: Status: Active Freq: Q6H Protocol: Document 02/24/22 13:00 MW (Rec: 02/24/22 14:43 MW [id number]) Wound/Incision Assessment Right Knee Wound Assessment Shift Assessment Wound Type Incision Wound Stage Non Pressure Wound Dressing Status Dry & Intact Drainage Amount None Comment Dressing to right knee C/D/I. Wound Photo Photo Taken No Final Diagnosis/Problem List - Final Discharge Diagnosis/Problem (1) NSTEMI (non-ST elevated myocardial infarction) Current Visit: Yes Status: Acute Code(s): I21.4 - NON-ST ELEVATION (NSTEMI) MYOCARDIAL INFARCTION (2) Leukocytosis Current Visit: Yes Status: Resolved Code(s): D72.829 - ELEVATED WHITE BLOOD CELL COUNT, UNSPECIFIED (3) Aftercare following right knee joint replacement surgery Current Visit: Yes Status: Acute Code(s): Z47.1 - AFTERCARE FOLLOWING JOINT REPLACEMENT SURGERY; Z96.651 - PRESENCE OF RIGHT ARTIFICIAL KNEE JOINT - Discharge Disposition: Home, Self-Care Condition: Stable Prescriptions: Changed Warfarin Sodium 3 mg [Coumadin 3 MG] 5 mg PO 1800 #0 No Action Metoprolol Tartrate 25 mg [Lopressor 25MG Tab] 25 mg PO BID Pravastatin Sodium [Pravachol] 80 mg PO 1800 Hydrocodone/APAP 5-325 Tab^^^ [[place] 5-325 Tablet^^^] 1 tab PO Q4HPRN PRN #30 tablet MDD 6 PRN Reason: Pain hydrOXYzine pamoate [Vistaril] 25 mg PO Q6H PRN PRN Reason: Pain Ezetimibe 10 mg [Zetia 10 MG] 10 mg PO 1800 Additional Instructions: Call for appt with your Airport Operations Supervisor Dr Domínguez for appt tomorrow,02/07 (per Dr Perez ,covering Airport Operations Supervisor) Follow up with: MELVIN IVEY NP [Primary Care Provider] -
== END 2022-02-24 15:47 | disposition home or self-care (01) ==
LOC: ED 13:47 → ICU 22:52
PROVIDERS: ADMIT Family Medicine; ATTEND Family Medicine
DX: I21.4 Non-ST elevation (NSTEMI) myocardial infarction (principal); D72.829 Elevated white blood cell count, unspecified; R11.2 Nausea with vomiting, unspecified; R19.7 Diarrhea, unspecified; S81.011A Laceration without foreign body, right knee, initial encounter; Z47.1 Aftercare following joint replacement surgery; Z96.651 Presence of right artificial knee joint; Z79.899 Other long term (current) drug therapy; Z20.828 Contact with and (suspected) exposure to other viral communicable diseases; Z79.01 Long term (current) use of anticoagulants; Z72.0 Tobacco use
CPT/HCPCS: 0241U; 36415; 74176; 76705; 80053; 80061; 83605; 83690; 83721; 84145; 84484; 85025; 85610; 85730; 93005; 93268; 96360; 96374; 96375; 99284; G0378; J1650; J2405; J3010; A9270-GY

== ENCOUNTER 2022-05-13 17:44 | Emergency (ER) | payer MEDICARE ==
[2022-05-13] MEDS ORDERED: Zofran 4 MG/2 ML VIAL IV ONE (18:07)
[2022-05-13] MEDS ORDERED: MORPHINE SULFATE 4 MG INJ IV ONE ×2 (18:07→21:15)
[2022-05-13] MEDS ORDERED: Sodium Chloride 0.9% 1000 ML 1,000 ML IV STA (18:07)
--- NOTE | 2022-05-13 18:11 | ERPHSYRPT ---
- History of Present Illness Historian: patient Exam Limitations: no limitations Patient Subjective Stated Complaint: Pt c/o of abdominal pain right at the umbilicus with vomiting that began last night, pt does not have his appendix Triage Nursing Assessment: Pt brought to the ER by his , hypertensive, rates pain as 4-5/10 in his medial abdomen, N&V, denies diarrhea, was able to keep a sandwich down today and some water, pulses normal, skin normal, last bowel movem ent this AM Timing/Duration: yesterday, gradual onset, worse Activities at Onset: rest Quality: sharpness Abdominal Pain Onset Location: RLQ, LLQ, periumbilical, suprapubic Pain Radiation: no radiation Severity of Pain-Max: moderate Severity of Pain-Current: moderate Modifying Factors: Worsens With: movement, palpation, vomiting Associated Symptoms: nausea, vomiting, No fever/chills Previous symptoms: no prior history Hx Tetanus, Diphtheria Vaccination/Date Given: (unk) Hx Influenza Vaccination/Date Given: No Hx Pneumococcal Vaccination/Date Given: No - History of Present Illness Time Seen by Provider: 05/13/22 17:46 Physician History: 71 years old male with history of coronary artery disease status post CABG, mechanical heart valve on Coumadin, hypertension, hyperlipidemia presented in the ER with chief complaint of periumbilical/lower abdominal pain since yesterday with associated multiple episodes of nonprojectile, nonbilious vomiting without hematemesis. Patient described this as a dull aching to sharp pain moderate intensity, more with palpation/vomiting/movements and partial relief with resting. Denies any difficulty urination or any other urinary symptoms. No fever or chills reported. Has history of appendectomy. (UZAIR CORRAL) Allergies/Adverse Reactions: meperidine [From Demerol] Adverse Reaction (Verified 05/13/22 18:05) pt states he becomes violent Home Medications: Metoprolol Tartrate 25 mg [Lopressor 25MG Tab] 25 mg PO BID 05/29/20 [History] Pravastatin Sodium [Pravachol] 80 mg PO 1800 05/29/20 [History] Ezetimibe 10 mg [Zetia 10 MG] 10 mg PO 1800 02/21/22 [History] Travel Risk - International Travel Have you traveled outside of the country in past 3 weeks: No - Coronavirus Screening Are you exhibiting any of the following symptoms?: No - Vaccine Status Have you recieved a Covid-19 vaccination: No - Review of Systems Constitutional: No Symptoms Eyes: No Symptoms Ears, Nose, & Throat: No Symptoms Respiratory: No Symptoms Cardiac: No Symptoms Abdominal/Gastrointestinal: Abdominal Pain, Nausea, Vomiting Genitourinary Symptoms: No Symptoms Musculoskeletal: No Symptoms Skin: No Symptoms Neurological: No Symptoms Psychological: No Symptoms Endocrine: No Symptoms Hematologic/Lymphatic: No Symptoms - Past Medical History Pertinent Past Medical History: Yes Neurological History: TIA ENT History: No Pertinent History Cardiac History: Coronary Artery Disease, Hypertension Respiratory History: No Pertinent History Endocrine Medical History: No Pertinent History Musculoskeletal History: No Pertinent History GI Medical History: Hemorrhoids History: Other Psycho-Social History: No Pertinent History Male Reproductive Disorders: No Pertinent History Other Medical History: hx of kidney stones,hernia - Past Surgical History Past Surgical History: Yes Neuro Surgical History: No Pertinent History Cardiac: CABG Respiratory: No Pertinent History Gastrointestinal: Appendectomy Genitourinary: No Pertinent History Musculoskeletal: Orthopedic Surgery Male Surgical History: No Pertinent History Other Surgical History: knee surg bilat, shoulder surg, kidney stone removed, ear surg, sinus surg, hemorrhoidectomy. CABG 01/15/2019 - Social History Smoking Status: Current every day smoker How long have you smoked: 50 Exposure to second hand smoke: Yes Drug Use: none Patient Lives Alone: No Significant Family History: no pertinent family hx - Physical Exam General Appearance: no apparent distress, alert Eye Exam: PERRL/EOMI Ears, Nose, Throat Exam: normal ENT inspection, TMs normal, pharynx normal, moist mucous membranes Neck Exam: normal inspection, supple, full range of motion Respiratory Exam: normal breath sounds, lungs clear Cardiovascular Exam: regular rate/rhythm, murmur, edema Gastrointestinal/Abdomen Exam: soft, tenderness (Lower abdomen with some guarding but no rebound tenderness), No normal bowel sounds Back Exam: normal inspection, normal range of motion Extremity Exam: normal inspection, normal range of motion Neurologic Exam: alert, oriented x 3, cooperative Skin Exam: normal color SpO2 Interpretation: normal SpO2: 96 O2 Delivery: Room Air - Nursing Vital Signs Nursing Vital Signs: Initial Vital Signs Temperature 98.0 F 05/13/22 17:54 Pulse Rate 80 05/13/22 17:54 Blood Pressure 165/77 05/13/22 17:54 O2 Sat by Pulse Oximetry 96 05/13/22 17:54 Pain Scale Pain Intensity 0 - Course EKG Interpreted by Me: RATE (75), Sinus Rhythm, A-fib, NORMAL AXIS, Non-specific ST Changes Ordered Tests: Active Orders 24 hr Category Date Time Status IV Insertion STAT Care 05/13/22 18:07 Active NPO (ED) STAT Care 05/13/22 18:07 Active ABDOMEN AND PELVIS W/0 CONTRAS [CT] Stat Exams 05/13/22 18:07 Completed CBC W DIFF Stat Lab 05/13/22 18:19 Completed CMP Stat Lab 05/13/22 18:19 Completed LIPASE Stat Lab 05/13/22 18:19 Completed Lactic Acid Stat Lab 05/13/22 18:22 Completed PROTIME WITH INR Stat Lab 05/13/22 18:19 Completed UA W/RFX CULTURE Stat Lab 05/13/22 22:11 Completed Medication Summary Generic Name Dose Route Start Last Admin Trade Name Freq PRN Reason Stop Dose Admin Sodium Chloride 1,000 mls @ 125 mls/hr 05/13/22 22:15 05/14/22 08:25 Sodium Chloride 0.9% 1000 Ml IV 06/12/22 22:14 125 mls/hr .Q8H SIRI Administration Piperacillin Sod/Tazobactam 100 mls @ 200 mls/hr 05/14/22 08:45 05/14/22 08:37 Sod 3.375 gm/ Sodium Chloride IV 05/14/22 09:14 200 mls/hr STAT ONE Administration Discontinued Medications Generic Name Dose Route Start Last Admin Trade Name Freq PRN Reason Stop Dose Admin Sodium Chloride 1,000 mls @ 999 mls/hr 05/13/22 18:07 05/14/22 00:24 Sodium Chloride 0.9% 1000 Ml IV 05/13/22 19:07 Infused .Q1H1M STA Infusion Sodium Chloride Confirm 05/13/22 18:19 Sodium Chloride 0.9% 1000 Ml Administered 05/13/22 18:20 Dose 1,000 mls @ ud .ROUTE .STK-MED ONE Piperacillin Sod/Tazobactam 100 mls @ 200 mls/hr 05/13/22 20:21 05/13/22 20:39 Sod 3.375 gm/ Sodium Chloride IV 05/13/22 20:50 200 mls/hr STAT ONE Administration Sodium Chloride Confirm 05/13/22 20:38 Sodium Chloride 100ml Mini-Bag Plus Administered 05/13/22 20:39 Dose 100 mls @ ud IV .STK-MED ONE Piperacillin Sod/Tazobactam 100 mls @ 200 mls/hr 05/14/22 02:40 05/14/22 02:44 Sod 3.375 gm/ Sodium Chloride IV 05/14/22 03:09 200 mls/hr STAT ONE Administration Sodium Chloride Confirm 05/14/22 02:43 Sodium Chloride 100ml Mini-Bag Plus Administered 05/14/22 02:44 Dose 100 mls @ ud IV .STK-MED ONE Sodium Chloride Confirm 05/14/22 08:24 Sodium Chloride 0.9% 1000 Ml Administered 05/14/22 08:25 Dose 1,000 mls @ ud .ROUTE .STK-MED ONE Sodium Chloride Confirm 05/14/22 08:36 Sodium Chloride 100ml Mini-Bag Plus Administered 05/14/22 08:37 Dose 100 mls @ ud IV .STK-MED ONE Morphine Sulfate 4 mg 05/13/22 18:07 05/13/22 18:22 Morphine Sulfate 4 Mg/Ml Injection IV 05/13/22 18:08 4 mg STAT ONE Administration Morphine Sulfate Confirm 05/13/22 18:19 Morphine Sulfate 4 Mg/Ml Injection Administered 05/13/22 18:20 Dose 4 mg .ROUTE .STK-MED ONE Morphine Sulfate Confirm 05/13/22 21:14 Morphine Sulfate 4 Mg/Ml Injection Administered 05/13/22 21:15 Dose 4 mg .ROUTE .STK-MED ONE Morphine Sulfate 4 mg 05/13/22 21:15 05/13/22 21:20 Morphine Sulfate 4 Mg/Ml Injection IV 05/13/22 21:16 4 mg STAT ONE Administration Ondansetron HCl 4 mg 05/13/22 18:07 05/13/22 18:22 Ondansetron Hcl 4 Mg/2 Ml Vial IV 05/13/22 18:08 4 mg STAT ONE Administration Ondansetron HCl Confirm 05/13/22 18:19 Ondansetron Hcl 4 Mg/2 Ml Vial Administered 05/13/22 18:20 Dose 4 mg .ROUTE .STK-MED ONE Piperacillin Sod/Tazobactam Sod Confirm 05/13/22 20:38 Piperacillin/Tazobactam Sodium 3.375 Gm Vial Administered 05/13/22 20:39 Dose 3.375 gm IV .STK-MED ONE Piperacillin Sod/Tazobactam Sod Confirm 05/14/22 02:42 Piperacillin/Tazobactam Sodium 3.375 Gm Vial Administered 05/14/22 02:43 Dose 3.375 gm IV .STK-MED ONE Piperacillin Sod/Tazobactam Sod Confirm 05/14/22 08:23 Piperacillin/Tazobactam Sodium 3.375 Gm Vial Administered 05/14/22 08:24 Dose 3.375 gm IV .STK-MED ONE Lab/Rad Data: Laboratory Result Diagrams 05/13/22 18:19 05/13/22 18:19 Laboratory Results 05/13/22 05/13/22 05/13/22 Range/Units 22:11 18:22 18:19 WBC (4.0-10.5) x10^3/uL RBC (4.1-5.6) x10^6/uL Hgb (12.5-18.0) g/dL Hct (42-50) % MCV (78-100) fL MCH (26-32) pg MCHC (32-36) g/dL RDW (11.5-14.0) % Plt Count (150-450) x10^3/uL MPV (7.5-11.0) fL Gran % (36.0-66.0) % Immature Gran % (Auto) (0.00-0.4) % Nucleat RBC Rel Count (0.00-0.1) % Eos # (Auto) (0-0.5) x10^3/uL Immature Gran # (Auto) (0.00-0.03) x10^3u/L Absolute Lymphs (auto) (1.0-4.6) x10^3/uL Absolute Monos (auto) (0.0-1.3) x10^3/uL Absolute Nucleated RBC (0.00-0.01) x10^3u/L Lymphocytes % (24.0-44.0) % Monocytes % (0.0-12.0) % Eosinophils % (0.00-5.0) % Basophils % (0.0-0.4) % Absolute Granulocytes (1.4-6.9) x10^3/uL Basophils # (0-0.4) x10^3/uL PT 15.2 H (9.4-12.5) SECONDS INR 1.49 (0.8-3.0) Sodium (137-145) mmol/L Potassium (3.5-5.1) mmol/L Chloride (98-107) mmol/L Carbon Dioxide (22-30) mmol/L Anion Gap (5-15) MEQ/L BUN (9-20) mg/dL Creatinine (0.66-1.25) mg/dL Estimated GFR ML/MIN Glucose (74-106) mg/dL Lactic Acid 1.6 (0.4-2.0) Calcium (8.4-10.2) mg/dL Total Bilirubin (0.2-1.3) mg/dL AST (17-59) U/L ALT (0-50) U/L Alkaline Phosphatase (38-126) U/L Serum Total Protein (6.3-8.2) g/dL Albumin (3.5-5.0) g/dL Lipase (23-300) U/L Urinalys Dipstick Clnc MAIN LAB Urine Color DARK YELLOW (YELLOW) Urine Appearance CLEAR (CLEAR) Urine pH 7.0 (5-6) Ur Specific [place] 1.020 (1.005-1.025) POC Urine Protein Conf 30 (Negative) Urine Ketones NEGATIVE (NEGATIVE) Urine Nitrite NEGATIVE (NEGATIVE) Urine Bilirubin MODERATE (NEGATIVE) Urine Urobilinogen 1 (0-1) mg/dL Urine Leukocytes NEGATIVE (NEGATIVE) Urine WBC (Auto) NONE (0-5) /HPF Urine RBC (Auto) NONE (0-2) /HPF U Epithel Cells (Auto) NONE (FEW) /HPF Urine Bacteria (Auto) NONE (NEGATIVE) /HPF Urine RBC NEGATIVE (0-5) Geo/ul Unidentified Crystals 2-5 (NEGATIVE) /HPF Urine Mucus (Auto) SLIGHT (NEGATIVE) /HPF Ur Culture Indicated? NO Urine Glucose NEGATIVE (NEGATIVE) mg/dL 05/13/22 05/13/22 Range/Units 18:19 18:19 WBC 9.4 (4.0-10.5) x10^3/uL RBC 4.91 (4.1-5.6) x10^6/uL Hgb 14.9 (12.5-18.0) g/dL Hct 44.2 (42-50) % MCV 90.0 (78-100) fL MCH 30.3 (26-32) pg MCHC 33.7 (32-36) g/dL RDW 12.4 (11.5-14.0) % Plt Count 207 (150-450) x10^3/uL MPV 10.6 (7.5-11.0) fL Gran % 78.5 H (36.0-66.0) % Immature Gran % (Auto) 0.3 (0.00-0.4) % Nucleat RBC Rel Count 0.0 (0.00-0.1) % Eos # (Auto) 0.04 (0-0.5) x10^3/uL Immature Gran # (Auto) 0.03 (0.00-0.03) x10^3u/L Absolute Lymphs (auto) 1.17 (1.0-4.6) x10^3/uL Absolute Monos (auto) 0.76 (0.0-1.3) x10^3/uL Absolute Nucleated RBC 0.00 (0.00-0.01) x10^3u/L Lymphocytes % 12.4 L (24.0-44.0) % Monocytes % 8.1 (0.0-12.0) % Eosinophils % 0.4 (0.00-5.0) % Basophils % 0.3 (0.0-0.4) % Absolute Granulocytes 7.40 H (1.4-6.9) x10^3/uL Basophils # 0.03 (0-0.4) x10^3/uL PT (9.4-12.5) SECONDS INR (0.8-3.0) Sodium 138 (137-145) mmol/L Potassium 3.8 (3.5-5.1) mmol/L Chloride 105 (98-107) mmol/L Carbon Dioxide 27 (22-30) mmol/L Anion Gap 9.4 (5-15) MEQ/L BUN 16 (9-20) mg/dL Creatinine 0.86 (0.66-1.25) mg/dL Estimated GFR > 60.0 ML/MIN Glucose 151 H (74-106) mg/dL Lactic Acid (0.4-2.0) Calcium 8.7 (8.4-10.2) mg/dL Total Bilirubin 2.90 H (0.2-1.3) mg/dL AST 546 H (17-59) U/L ALT 360 H (0-50) U/L Alkaline Phosphatase 128 H (38-126) U/L Serum Total Protein 7.0 (6.3-8.2) g/dL Albumin 4.1 (3.5-5.0) g/dL Lipase 58 (23-300) U/L Urinalys Dipstick Clnc Urine Color (YELLOW) Urine Appearance (CLEAR) Urine pH (5-6) Ur Specific [place] (1.005-1.025) POC Urine Protein Conf (Negative) Urine Ketones (NEGATIVE) Urine Nitrite (NEGATIVE) Urine Bilirubin (NEGATIVE) Urine Urobilinogen (0-1) mg/dL Urine Leukocytes (NEGATIVE) Urine WBC (Auto) (0-5) /HPF Urine RBC (Auto) (0-2) /HPF U Epithel Cells (Auto) (FEW) /HPF Urine Bacteria (Auto) (NEGATIVE) /HPF Urine RBC (0-5) Geo/ul Unidentified Crystals (NEGATIVE) /HPF Urine Mucus (Auto) (NEGATIVE) /HPF Ur Culture Indicated? Urine Glucose (NEGATIVE) mg/dL - Progress Progress: improved, re-examined Discussed with Dr.: Morales, Other (Dr. Parkinson) Counseled pt/family regarding: lab results, diagnosis, need for follow-up, rad results - Progress Progress Note: 05/13/22 20:42 Given fluids and symptomatic treatment, on reevaluation feeling much better. Has a normal white count, chemistries showed elevated transaminases with a total bili of 2.9. CT showed cholelithiasis with gallbladder wall thickening and some pericholecystic fluid consistent with acute cholecystitis. Given a dose of antibiotics Zosyn. Discussed with Dr. Sammy Leblanc, patient needs ERCP and no services are available here/Machelle Delgado and recommended transfer to a higher level of care. 05/13/22 20:[address] [facility], reviewed history, work-up and agreed with transfer. 0 (UZAIR CORRAL) Patient endorsed Dr. Caldwell at approximately [address] abdomen pelvis reveals a small AAA. No indication for immediate intervention at this time. However patient has been diagnosed with a cholecystitis by previous physician. Transfer to [facility] has been established. However we do not have transportation immediately available. Patient has been here for an extended period of time. Patient aware of the issue. Patient states that he no longer wants to wait as it makes no sense to sit here if we cannot offer him treatment. Patient will have a family member transport him directly from our ED to [facility]. [facility] has been notified that patient will be arriving via private vehicle. Patient received antibiotics. Dr. Corral discussed the case with Dr. Leblanc who advised transfer for ERCP. Patient stable. Vital stable. Pain well controlled. Antibiotics infused. No indication for further work-up at this time. Patient is stable for transport. As stated patient does not feel its appropriate to stay in our ED and will transport to [place] via private vehicle. Portions of this note were created with voice recognition technology. There may be grammatical, spelling, punctuation or sound alike errors 05/14/22 09:03 (WILLIAM CALDWELL) - Departure Departure Disposition: Transfer Critical Care Time: No - Departure Clinical Impression: Acute cholecystitis, AAA (abdominal aortic aneurysm), Transaminitis, Total bilirubin, elevated, Biliary colic, Renal cyst, Vascular calcification, Fat- containing umbilical hernia Condition: Stable Referrals: MELVIN IVEY, [employer]CHNICIAN [Primary Care Provider] - Follow up/PCP as directed
[2022-05-13] MEDS ORDERED: MORPHINE SULFATE 4 MG INJ ONE ×2 (18:19→21:14)
[2022-05-13] MEDS ORDERED: Sodium Chloride 0.9% 1000 ML 1,000 ML ONE (18:19)
[2022-05-13] MEDS ORDERED: Zofran 4 MG/2 ML VIAL ONE (18:19)
[2022-05-13 18:21] LABS: Basophil (Absolute #) 0.03 x10^3/uL (0-0.4); Eosinophil % 0.4 % (0.00-5.0); Eosinophil (Absolute #) 0.04 x10^3/uL (0-0.5); Hematocrit 44.2 % (42-50); Hemoglobin 14.9 g/dL (12.5-18.0); Lymphocyte (Absolute #) 1.17 x10^3/uL (1.0-4.6); Lymphocytes % 12.4 % (24.0-44.0); Mean Corpuscular Hemoglobin 30.3 pg (26-32); Mean Corpuscular Hgb Concent. 33.7 g/dL (32-36); Mean Platelet Volume 10.6 fL (7.5-11.0); Monocyte (Absolute #) 0.76 x10^3/uL (0.0-1.3); Monocytes % 8.1 % (0.0-12.0); Neutrophil % 78.5 % (36.0-66.0); Platelet Count 207 x10^3/uL (150-450); Red Blood Count 4.91 x10^6/uL (4.1-5.6); Red Cell Distribution Width 12.4 % (11.5-14.0); White Blood Count 9.4 x10^3/uL (4.0-10.5)
[2022-05-13 18:36] LABS: ALBUMIN 4.1 g/dL (3.5-5.0); ALKALINE PHOSPHATASE 128 U/L (38-126); ANION GAP 9.4 MEQ/L (5-15); BLOOD UREA NITROGEN 16 mg/dL (9-20); CHLORIDE 105 mmol/L (98-107); Calcium 8.7 mg/dL (8.4-10.2); Carbon Dioxide 27 mmol/L (22-30); Creatinine 1 0.86 mg/dL (0.66-1.25); EST GLOMERULAR FILTRATION RATE > 60.0 ML/MIN; Glucose 151 mg/dL (74-106); INR 1.49 (0.8-3.0); LIPASE 58 U/L (23-300); PROTIME 15.2 SECONDS (9.4-12.5); Potassium 3.8 mmol/L (3.5-5.1); SGOT/AST 546 U/L (17-59); SGPT/ALT 360 U/L (0-50); SODIUM 138 mmol/L (137-145)
[2022-05-13] MEDS ORDERED: PIPERACILLIN/TAZOBACTAM 3.375 GM in Sodium Chloride 100ML MINI-BAG PLUS 100 ML IV ONE (20:21)
[2022-05-13] MEDS ORDERED: PIPERACILLIN/TAZOBACTAM IV ONE (20:38)
[2022-05-13] MEDS ORDERED: Sodium Chloride 100ML MINI-BAG PLUS 100 ML IV ONE (20:38)
[2022-05-13 22:41] LABS: Mucus SLIGHT /HPF (NEGATIVE)
[2022-05-13 22:50] LABS: Appearance CLEAR (CLEAR); Bilirubin MODERATE (NEGATIVE); Glucose NEGATIVE (NEGATIVE); Ketones NEGATIVE (NEGATIVE); Nitrite NEGATIVE (NEGATIVE); Protein,Urine Dip 30 (Negative); RBC NEGATIVE Ery/ul (0-5); Urobilinogen 1 mg/dL (0-1)
[2022-05-13 22:51] LABS: Dipstick done @ ? MAIN LAB
[2022-05-13 22:52] LABS: Urine Cultured Indicated? NO
[2022-05-13] MEDS: Sodium Chloride 0.9% 1000 ML 1,000 ML IV SCH (23:03)
[2022-05-14] MEDS ORDERED: PIPERACILLIN/TAZOBACTAM 3.375 GM in Sodium Chloride 100ML MINI-BAG PLUS 100 ML IV ONE (02:40)
[2022-05-14] MEDS ORDERED: PIPERACILLIN/TAZOBACTAM IV ONE ×2 (02:42→08:23)
[2022-05-14] MEDS ORDERED: Sodium Chloride 100ML MINI-BAG PLUS 100 ML IV ONE ×2 (02:43→08:36)
[2022-05-14] MEDS ORDERED: Sodium Chloride 0.9% 1000 ML 1,000 ML ONE (08:24)
[2022-05-14] MEDS: Sodium Chloride 0.9% 1000 ML 1,000 ML IV SCH (08:25)
[2022-05-14] MEDS: PIPERACILLIN/TAZOBACTAM 3.375 GM in Sodium Chloride 100ML MINI-BAG PLUS 100 ML IV ONE (08:37)
--- NOTE | 2022-05-14 08:44 | XRAY ---
Indication: Abdomen pain and vomiting. Multiple contiguous axial images obtained through the abdomen and pelvis without contrast. Comparison: February 21, 2022 Lung bases demonstrate new mild bilateral dependent atelectasis. Stable right base calcified granuloma. Heart not enlarged. Distal esophagus is now mildly fluid distended presumed from gastroesophageal reflux. Stomach is mildly fluid distended. Noncontrasted stomach and bowel loops appear nonobstructed. Appendectomy reported. Again minimal descending and sigmoid diverticulosis without diverticulitis. Stable small bilateral renal cysts and tiny hepatic/splenic calcified granulomas. No free fluid/air. Gallbladder is now abnormally distended again with gravel/sludge. New pericholecystic stranding favoring acute cholecystitis. No abnormal biliary distention. Remaining liver, pancreas, spleen, adrenal glands, kidneys, ureters, and bladder are unremarkable for noncontrast exam. There remains significant scattered vascular calcifications with stable 3 cm distal AAA. Osseous structures intact again with osteopenia, mild degenerative changes throughout the visualized spine, and mild degenerative changes both hips. Impression: 1. New CT findings as detailed favoring acute cholecystitis. 2. New gastroesophageal reflux. 3. Again chronic findings including colonic diverticulosis, bilateral renal cysts, arteriosclerotic disease with AAA, chronic bony findings, and old granulomatous disease. Comment: Preliminary interpretation made by [facility]. No critical discrepancy.
[2022-05-14 09:21] VITALS: BP 159/77; PULSE 90; O2SAT 97
== END 2022-05-14 09:20 | disposition short-term general hospital (02) ==
LOC: ED 17:44
DX: K80.42 Calculus of bile duct with acute cholecystitis without obstruction (principal); I71.4 Abdominal aortic aneurysm, without rupture; R74.01 Elevation of levels of liver transaminase levels; R17 Unspecified jaundice; N28.1 Cyst of kidney, acquired; I70.90 Unspecified atherosclerosis; K42.9 Umbilical hernia without obstruction or gangrene; R10.33 Periumbilical pain; R11.2 Nausea with vomiting, unspecified; I10 Essential (primary) hypertension; Z72.0 Tobacco use; Z79.899 Other long term (current) drug therapy; Z28.310 Unvaccinated for COVID-19
CPT/HCPCS: 36000; 36415; 74176; 80053; 81015; 83605; 83690; 85025; 85610; 96360; 96374; 96375; 96376; 99285; J2270; J2405

== ENCOUNTER 2022-11-20 11:33 | Day surgery (SDC) | payer MEDICARE ==
[2022-11-20] MEDS ORDERED: BUPIVACAINE 0.5% VIAL IJ ONE (11:34)
[2022-11-20] MEDS ORDERED: Depo-Medrol 40 MG/ML IM ONE (11:34)
[2022-11-20 13:29] LABS: INR 1.13 (0.8-3.0); PROTIME 12.2 SECONDS (9.4-12.5)
[2022-11-20] MEDS ORDERED: DIPRIVAN 200 MG/20 ML IV ONE (14:58)
[2022-11-20] MEDS ORDERED: Lactated Ringers 1,000 ML IV ONE (15:32)
--- NOTE | 2022-11-20 16:31 | XRAY ---
Indication: Bilateral SI joint injection. Intraoperative fluoroscopy provided for 17 seconds. 4 digital spot image submitted for interpretation demonstrates posterior needle tip projecting over the left and right SI joints. Correlate with intraoperative findings/report.
--- NOTE | 2022-11-20 16:50 | XRAY ---
17 seconds of fluoroscopy was used in surgery for a bilateral sacroiliac joint injection.
== END 2022-11-20 15:30 | disposition home or self-care (01) ==
LOC: SDC-PAIN 11:33
PROVIDERS: ATTEND Psychiatry & Neurology Pain Medicine
DX: M46.1 Sacroiliitis, not elsewhere classified (principal); Z79.01 Long term (current) use of anticoagulants
CPT/HCPCS: 01992; 27096; 36415; 72202; 77002; 85610; 99100; G0260; J1030; J2704